=== PATIENT | male | born 1980 | race Caucasian/White ===

== ENCOUNTER 2024-09-04 17:55 | Emergency (ER) | payer BC, SELFPAY ==
[2024-09-04 17:55] VITALS: BP 153/106; PULSE 112; RESP 16; TEMP 36.3; O2SAT 98; BMI 21.6
--- NOTE | 2024-09-04 19:00 | RAD_ITS ---
PROCEDURE: FINGER(S) MIN 2 VIEWS 09/04/2024 REASON FOR EXAM: TRAUMA TECHNIQUE: FINGER(S) MIN 2 VIEWS COMPARISON: None. FINDINGS: Bones: Acute mildly displaced and comminuted fracture of the 2nd middle phalanx (pointer finger). Joints: There is intra-articular extension of the fracture into the PIP joint. Otherwise unremarkable joint spaces. Soft tissues: Soft tissue swelling. Other: No radiopaque foreign body. RAD/Finger(s) Min 2 Views IMPRESSION: Acute fracture of the 2nd middle phalanx with intra-articular extension. Reading Location: [id number]
--- OUTSIDE RECORDS SUMMARY | 2024-09-04 19:04 | XMS RPT_ITS | CCD ---
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 episode (HCC) - ICD9: 296.22, ICD10: F32.1 (primary diagnosis) - BUPROPION XL 150 MG TAB 2. Screening for depression - ICD9: V79.0, ICD10: Z13.31 - DEPRESSION SCREENING 3. Encounter for screening examination for other mental health and behavioral disorders - ICD9: V79.8, ICD10: Z13.39 - ANXIETY SCREENING 4. Bacterial sinusitis - ICD9: 473.9, 041.9, ICD10: J32.9, B96.89 - Will begin treatment with as per antibiotic as written, see orders - AMOXICILLIN 875 MG-POTASSIUM CLAVULANATE 125 MG TABLET Lashawn Rod APRN.Lashawn Leigh APRN.CNP 01/20/2024 4:26 PM Signed [place] [facility] - Insurance Therapy/Counseling [facility] [address] [place] [address] [address] [employer] [address] [address] [facility] [address] [place] [address] [facility] [address] [place] [address] [facility] [address] [place], [place] [address] [employer] [address] [place] [address] [facility] [address] [place] [address] Allergies As of Date: 01/20/2024 (No Known Allergies) Date Reviewed: 01/20/2024 Reviewed by: Elda Eugene MA - Fully Assessed Reason for Visit: Depression [32] Primary Visit Diagnosis:Current moderate episode of major depressive disorder without prior episode (HCC) [F32.1] Other Visit Diagnoses:Screening for depression [Z13.31] Encounter for screening examination for other mental health and behavioral disorders [Z13.39] Bacterial sinusitis [J32.9, B96.89] Order(s):buPROPion XL (WELLBUTRIN XL) 150 mg 24 hr tabletTake 1 tablet by mouth once daily.Disp: 60 tabletRfl: 0 DEPRESSION SCREENING [] Order #: [id number] (more content not included)... Normal [facility] Vital Signs Date Time Vital Sign Value Performing Clinician Shabbir ferraro 07-19-2024 15:39-0400 Body mass index (BMI) [Ratio] 22.98 kg/m2 Lashawn Rod APRN.EVENTS SOLUTIONS CONSULTANT Work Phone: [facility] 07-19-2024 15:39-0400 Body weight 79 kg Lashawn Rod APRN.EVENTS SOLUTIONS CONSULTANT Work Phone: [facility] 07-19-2024 15:39-0400 Diastolic blood pressure 73 mm[Hg] Lashawn Rod APRN.EVENTS SOLUTIONS CONSULTANT Work Phone: [facility] 07-19-2024 15:39-0400 Heart rate 83 /min Lashawn Rod APRN.EVENTS SOLUTIONS CONSULTANT Work Phone: [facility] 07-19-2024 15:39-0400 Systolic blood pressure 114 mm[Hg] Lashawn Rod APRN.EVENTS SOLUTIONS CONSULTANT Work Phone: [facility] 04-20-2024 16:04-0500 Body mass index (BMI) [Ratio] 23.48 kg/m2 Lashawn Rod APRN.EVENTS SOLUTIONS CONSULTANT Work Phone: [facility] 04-20-2024 16:04-0500 Body weight 80.74 kg Lashawn Rod APRN.EVENTS SOLUTIONS CONSULTANT Work Phone: [facility] 04-20-2024 16:04-0500 Diastolic blood pressure 73 mm[Hg] Lashawn Rod APRN.EVENTS SOLUTIONS CONSULTANT Work Phone: [facility] 04-20-2024 16:04-0500 Heart rate 77 /min Lashawn Efrainoble CLERK FUNERAL DETAIL.EVENTS SOLUTIONS CONSULTANT Work Phone: [facility] 04-20-2024 16:04-0500 Respiratory rate 14 /min Lashawn Efrainoble CLERK FUNERAL DETAIL.EVENTS SOLUTIONS CONSULTANT Work Phone: [facility] 04-20-2024 16:04-0500 Systolic blood pressure 117 mm[Hg] Lashawn Efrainoble CLERK FUNERAL DETAIL.EVENTS SOLUTIONS CONSULTANT Work Phone: [facility] 03-02-2024 15:58-0500 Body mass index (BMI) [Ratio] 23.62 kg/m2 Lashawn Efrainoble CLERK FUNERAL DETAIL.EVENTS SOLUTIONS CONSULTANT Work Phone: [facility] 03-02-2024 15:58-0500 Body weight 81.19 kg Lashawn Knoble CLERK FUNERAL DETAIL.EVENTS SOLUTIONS CONSULTANT Work Phone: [facility] 03-02-2024 15:58-0500 Diastolic blood pressure 71 mm[Hg] Lashawn Efrainoble CLERK FUNERAL DETAIL.EVENTS SOLUTIONS CONSULTANT Work Phone: [facility] 03-02-2024 15:58-0500 Heart rate 73 /min Lashawn Efrainoble CLERK FUNERAL DETAIL.EVENTS SOLUTIONS CONSULTANT Work Phone: [facility] 03-02-2024 15:58-0500 Respiratory rate 14 /min Lashawn Efrainoble CLERK FUNERAL DETAIL.EVENTS SOLUTIONS CONSULTANT Work Phone: [facility] 03-02-2024 15:58-0500 Systolic blood pressure 117 mm[Hg] Lashawn Viola CLERK FUNERAL DETAIL.EVENTS SOLUTIONS CONSULTANT Work Phone: [facility] 01-20-2024 16:10-0500 Body mass index (BMI) [Ratio] 23.62 kg/m2 Lashawn Knoble CLERK FUNERAL DETAIL.EVENTS SOLUTIONS CONSULTANT Work Phone: [facility] 01-20-2024 16:10-0500 Body weight 81.19 kg Lashawn Efrainoble CLERK FUNERAL DETAIL.EVENTS SOLUTIONS CONSULTANT Work Phone: [facility] 01-20-2024 16:10-0500 Diastolic blood pressure 71 mm[Hg] Lashawn Efrainoble CLERK FUNERAL DETAIL.EVENTS SOLUTIONS CONSULTANT Work Phone: [facility] 01-20-2024 16:10-0500 Heart rate 83 /min Lashawn Viola CLERK FUNERAL DETAIL.EVENTS SOLUTIONS CONSULTANT Work Phone: [facility] 01-20-2024 16:10-0500 Respiratory rate 14 /min Lashawn Rod CLERK FUNERAL DETAIL.EVENTS SOLUTIONS CONSULTANT Work Phone: [facility] 01-20-2024 16:10-0500 Systolic blood pressure 115 mm[Hg] Lashawn Rod CLERK FUNERAL DETAIL.EVENTS SOLUTIONS CONSULTANT Work Phone: [facility] 02-22-2023 12:04-0500 Body temperature 97.5 [degF] Alicia Rene CLERK FUNERAL DETAIL.EVENTS SOLUTIONS CONSULTANT Work Phone: [facility] 02-22-2023 12:04-0500 Body weight 82.01 kg Alicia Rene CLERK FUNERAL DETAIL.EVENTS SOLUTIONS CONSULTANT Work Phone: [facility] 02-22-2023 12:04-0500 Diastolic blood pressure 86 mm[Hg] Alicia Rene CLERK FUNERAL DETAIL.EVENTS SOLUTIONS CONSULTANT Work Phone: [facility] 02-22-2023 12:04-0500 Heart rate 89 /min Alicia Rene CLERK FUNERAL DETAIL.EVENTS SOLUTIONS CONSULTANT Work Phone: [facility] 02-22-2023 12:04-0500 Respiratory rate 16 /min Alicia Rene CLERK FUNERAL DETAIL.EVENTS SOLUTIONS CONSULTANT Work Phone: [facility] 02-22-2023 12:04-0500 SaO2% (BldA) [Mass fraction] 96 % Alicia Rene CLERK FUNERAL DETAIL.EVENTS SOLUTIONS CONSULTANT Work Phone: [facility] 02-22-2023 12:04-0500 Systolic blood pressure 124 mm[Hg] Alicia Rene CLERK FUNERAL DETAIL.EVENTS SOLUTIONS CONSULTANT Work Phone: [facility] 10-03-2022 18:03-0400 Body height 185.4 cm Lasahwn Rod CLERK FUNERAL DETAIL.EVENTS SOLUTIONS CONSULTANT Work Phone: [facility] 10-03-2022 18:03-0400 Body weight 78.02 kg Lashawn Rod CLERK FUNERAL DETAIL.EVENTS SOLUTIONS CONSULTANT Work Phone: [facility] 10-03-2022 18:03-0400 Diastolic blood pressure 76 mm[Hg] Lashawn Rod APRN.EVENTS SOLUTIONS CONSULTANT Work Phone: [facility] 10-03-2022 18:03-0400 Heart rate 80 /min Lashawn Rod APRN.EVENTS SOLUTIONS CONSULTANT Work Phone: [facility] 10-03-2022 18:03-0400 Respiratory rate 16 /min Lashawn Rod APRN.EVENTS SOLUTIONS CONSULTANT Work Phone: [facility] 10-03-2022 18:03-0400 Systolic blood pressure 124 mm[Hg] Lashawn Rod APRN.EVENTS SOLUTIONS CONSULTANT Work Phone: [facility] 08-16-2022 18:50-0400 Body temperature 98.4 [degF] Cooper Rivera MD Work Phone: [facility] 08-16-2022 18:50-0400 Body weight 80.83 kg Cooper Rivera MD Work Phone: [facility] 08-16-2022 18:50-0400 Diastolic blood pressure 78 mm[Hg] Cooper Rivera MD Work Phone: [facility] 08-16-2022 18:50-0400 Heart rate 89 /min Cooper Rivera MD Work Phone: [facility] 08-16-2022 18:50-0400 Respiratory rate 18 /min Cooper Rivera MD Work Phone: [facility] 08-16-2022 18:50-0400 SaO2% (BldA) [Mass fraction] 97 % Cooper Rivera MD Work Phone: [facility] 08-16-2022 18:50-0400 Systolic blood pressure 122 mm[Hg] Cooper Rivera MD Work Phone: [facility] Encounters Encounter Date Encounter Type Care Provider Facility Start: 07-19-2024 End: 07-19-2024 Patient encounter procedure Lashawn Rod APRN.EVENTS SOLUTIONS CONSULTANT Work Phone: [facility] Comment on above: Bacterial sinusitis (Primary Dx); Eczema, unspecified type Start: 07-19-2024 End: 07-19-2024 ambulatory LASHAWN ROD Facility:[facility] Start: 04-20-2024 End: 04-20-2024 ambulatory LASHAWN ROD Facility:[facility] Start: 04-20-2024 End: 04-20-2024 Patient encounter procedure Lashawn Rod APRN.EVENTS SOLUTIONS CONSULTANT Work Phone: [facility] [place] Comment on above: Current moderate epi sode of major depressive disorder without prior episode (HCC) (Primary Dx); Screening for diabetes mellitus; Screening for lipid disorders; Medication management Start: 03-02-2024 End: 03-02-2024 Patient encounter procedure Lashawn Rod APRN.EVENTS SOLUTIONS CONSULTANT Work Phone: [facility] [place] Comment on above: Current moderate epi sode of major depressive disorder without prior episode (HCC) (Primary Dx); Difficulty sleeping Start: 03-02-2024 End: 03-02-2024 ambulatory LASHAWN ROD Facility:[facility] Start: 01-20-2024 End: 01-20-2024 ambulatory LASHAWN ROD Facility:[facility] Start: 01-20-2024 End: 01-20-2024 Patient encounter procedure Lashawn Rod APRN.EVENTS SOLUTIONS CONSULTANT Work Phone: [facility] Comment on above: Current moderate epi sode of major depressive disorder without prior episode (HCC) (Primary Dx); Screening for depression; Encounter for screening examination for other mental health and behavioral disorders; Bacterial sinusitis Start: 02-22-2023 End: 02-22-2023 Patient encounter procedure Alicia Rene APRN.EVENTS SOLUTIONS CONSULTANT [facility] Comment on above: Rhinosinusitis (Prim finn Dx) Start: 11-11-2022 Telephone encounter Arielle tyler PA-C Work Phone: [facility] [place] Comment on above: Results Start: 10-03-2022 End: 10-03-2022 Patient encounter procedure Lashawn Rod APRN.EVENTS SOLUTIONS CONSULTANT Work Phone: [facility] [place] Comment on above: Screening for diabet es mellitus (Primary Dx); Screening for lipid disorders; Medication management; Encounter for immunization; Special screening examination for viral disease; Screening for HIV (human immunodeficiency virus) Start: 08-16-2022 End: 08-16-2022 Patient encounter procedure Cooper Rivera MD Work Phone: [facility] Comment on above: Subacute cough (Prim finn Dx) Start: 12-06-2013 End: 12-06-2013 Emergency department patient visit Trevon Pink Facility:[facility] Procedures Date Procedure Procedure Detail Performing Clinician Start: 01-20-2024 Adult depression scr eening assessment Lashawn Rod CLERK FUNERAL DETAIL.EVENTS SOLUTIONS CONSULTANT Work Phone: Start: 11-09-2022 Lipid 1996 panel - S bacilio or Plasma Alicia Rene CLERK FUNERAL DETAIL.EVENTS SOLUTIONS CONSULTANT Work Phone: Start: 12-06-2013 Closure of skin and subcutaneous tissue of other sites Trevon Joesph Plan of Treatment Date Care Activity Detail Author Start: 10-03-2032 Urine microalbumin profile [facility] Start: 11-10-2027 Lipid 1996 panel - Serum or Plasma Lipid Screening [facility] Start: 11-10-2027 Lipid panel Lipid Screening [facility] Start: 11-10-2027 LIPID SCREEN LIPID SCREEN [facility] Start: 01-19-2025 Anxiety Screening Anxiety Screening [facility] Start: 01-19-2025 Depression Screening Depression Scre ening [facility] Start: 11-15-2024 Influenza vaccination Influenz a Vaccine (Season Ended) [facility] Start: 10-19-2024 End: 01-18-2025 CBC W Auto Differential panel - Blood COMPLETE BLOOD COUNT AND DIFFERENTIAL Lab Routine Medication management Expected: 10/19/2024, Expires: 01/18/[address] [facility] Work Phone: Comment on above: Expected: 10/19/2024 , Expires: 01/18/2025 Start: 10-19-2024 End: 01-18-2025 Comprehensive metabolic 2000 panel - Serum or Plasma COMPREHENSIVE METABOLIC PANEL Lab Routine Screening for diabetes mellitus Expected: 10/19/2024, Expires: 01/18/2025 [facility] Comment on above: Expected: 10/19/2024 , Expires: 01/18/2025 Start: 10-19-2024 End: 01-18-2025 Hemoglobin A1c in Blood HEMOGLOBIN A1C Lab Routine Screening for diabetes mellitus Expected: 10/19/2024, Expires: 01/18/2025 [facility] Comment on above: Expected: 10/19/2024 , Expires: 01/18/2025 Start: 10-19-2024 End: 01-18-2025 LIPID PANEL, NONFASTING LIPID PANEL, NONFASTING Lab Routine Screening for lipid disorders Expected: 10/19/2024, Expires: 01/18/2025 [facility] Comment on above: Expected: 10/19/2024 , Expires: 01/18/2025 Start: 10-19-2024 End: 01-18-2025 Thyrotropin [Units/volume] in Serum or Plasma THYROID STIMULATING HORMONE Lab Routine Medication management Expected: 10/19/2024, Expires: 01/18/2025 [facility] Comment on above: Expected: 10/19/2024 , Expires: 01/18/2025 Start: 10-18-2024 End: 10-18-2024 Patient encounter procedure 10/18/2024 4:00 PM EDT Office Visit Family [address] [address] Lashawn Rod, WILIAN.EVENTS SOLUTIONS CONSULTANT [address] [place] [address] [phone] 6 month follow up Family Sarah Harding Comment on above: 6 month follow up Start: 04-01-2024 End: 04-01-2024 Patient encounter procedure 04/01/2024 4:00 PM EST Office Visit Family [facility] [address] [place] [address] Lashawn Rod, CLERK FUNERAL DETAIL.EVENTS SOLUTIONS CONSULTANT [address] [place] [address] [phone] 4 week follow up Family Sarah Harding Comment on above: 4 week follow up Start: 03-02-2024 End: 03-02-2024 Patient encounter procedure 03/02/2024 4:20 PM EST Office Visit Family [address] [id number] Lashawn Rod APRN.EVENTS SOLUTIONS CONSULTANT [address] [place] [address] medication follow up Family [facility] Comment on above: medication follow up Start: 11-16-2023 Covid-19 Vaccine ( season) Covid-19 Vaccine ( season) [facility] Start: 11-16-2023 Influenza vaccination Influenza Vacc ine (#1) [facility] Start: 10-04-2023 COVID-19 VACCINE (#1) COVID-19 VACCI NE (#1) [facility] Comment on above: Postponed from 12/24 (Declined at this time) Start: 11-15-2022 Influenza vaccination C [facility] Start: 10-03-2022 End: 12-03-2022 CBC W Auto Differential panel - Blood CBC + DIFF Lab Routine Medication management Expected: 10/03/2022, Expires: 12/03/[address] [facility] Work Phone: Comment on above: Expected: 10/03/2022 , Expires: 12/03/2022 Start: 10-03-2022 End: 12-03-2022 Comprehensive metabolic 2000 panel - Serum or Plasma COMP METABOLIC PANEL Lab Routine Medication management Expected: 10/03/2022, Expires: 12/03/[address] [facility] Work Phone: Comment on above: Expected: 10/03/2022 , Expires: 12/03/2022 Start: 10-03-2022 End: 12-03-2022 Hemoglobin A1c in Blood HGB A1C Lab Routine Screening for diabetes mellitus Expected: 10/03/2022, Expires: 12/03/[address] [facility] Work Phone: Comment on above: Expected: 10/03/2022 , Expires: 12/03/2022 Start: 10-03-2022 End: 12-03-2022 Hepatitis C virus Ab [Presence] in Serum HEPATITIS C ANTIBODY IA WITH CONFIRMATION Lab Routine Special screening examination for viral disease Expected: 10/03/2022, Expires: 12/03/[address] [facility] Work Phone: Comment on above: Expected: 10/03/2022 , Expires: 12/03/2022 Start: 10-03-2022 End: 12-03-2022 HIV 1+2 Ab [Presence] in Serum or Plasma by Immunoassay HIV 1 2 COMBO(AG/AB),WITH REFLEX TO DIFFERENTIATION Lab Routine Screening for HIV (human immunodeficiency virus) Expected: 10/03/2022, Expires: 12/03/[address] [facility] Work Phone: Comment on above: Expected: 10/03/2022 , Expires: 12/03/2022 Start: 10-03-2022 End: 12-03-2022 LIPID PANEL, NONFASTING LIPID PANEL, NONFASTING Lab Routine Screening for lipid disorders Expected: 10/03/2022, Expires: 12/03/[address] [facility] Work Phone: Comment on above: Expected: 10/03/2022 , Expires: 12/03/2022 Start: 03-17-2022 DEPRESSION ASSESSMENT DEPRESSION ASS ESSMENT [facility] Start: 06-25-2015 LIPID SCREEN LIPID SCREEN [facility] Start: 06-25-1999 Urine microalbumin profile DTAP,TDAP,TD (1 - Tdap) [facility] Start: 1998 HEPATITIS C SCREENING HEPATITIS C [facility] Start: 1998 HIV SCREENING HIV SCREENING [facility] Start: 1980 COVID-19 VACCINE (#1) COVID-19 VACCI NE (#1) [facility] Start: 1980 HEPATITIS B (1 of 3 - 3-dose series) HEPATITIS B (1 of 3 - 3-dose series) [facility] Immunizations Immunization Date Immunization Notes Care Provider Fa dipak 10-03-2022 tetanus toxoid, redu carla diphtheria toxoid, and acellular pertussis vaccine, adsorbed Lashawn Rod APRN.CNP Work Phone: [facility] Payers Date Payer Category Payer Blue Cross Blue [facility] Subscriber Plan / Payer (Effective 2015-Present) Name: Albert Samuels Relation to Subscriber: Self Name: Albert Samuels Payer ID: [id number] ([facility]) Type: PPO Address: [address] [place] [id number] 2015 Unknown RONAK MCGOWAN PPO [id number] 2015-Present [phone] [address] [place] [id number] PPO [id number] 2015 Unknown [id number] Unknown [id number] Social History Date Type Detail Facility Start: 03-12-2014 Tobacco smoking stat [facility] Never smoked tobacco [facility] Start: 03-12-2014 Tobacco use and exposure Smokeless tobacco non-user [facility] Start: 08-16-2022 [facility] intake [facility] Start: 1980 Sex Assigned At Not on file C [facility] Start: 10-03-2022 End: 02-22-2023 Alcohol intake Current drinker of alcohol (finding) [facility] Start: 10-03-2022 End: 04-20-2024 Alcohol intake [facility] Work Phone: Start: 10-03-2022 End: 04-20-2024 Tobacco use panel [facility] Work Phone: Adult Depression Screening Assessment 2 [facility] Work Phone: Functional Status Date Assessment Result Facility 03-12-2014 Are you deaf, or do you have serious difficulty hearing No 03/12/2014 11:24 AM EST Mylene Burleson LPN No [facility] 03-12-2014 Are you blind, or do you have serious difficulty seeing, even when wearing glasses No 03/12/2014 11:24 AM Mylene Morrissey LPN No [facility] 03-12-2014 Do you have serious difficulty walking or climbing stairs No 03/12/2014 11:24 AM Mylene Morrissey LPN No [facility] 03-12-2014 Do you have difficul ty dressing or bathing No 03/12/2014 11:24 AM Mylene Morrissey LPN No [facility] 03-12-2014 Because of a physica l, mental, or emotional condition, do you have difficulty doing errands alone such as visiting a physician's office or shopping No 03/12/2014 11:24 AM Mylene Morrissey LPN No [facility] Mental Status Date Assessment Result Facility 03-12-2014 Because of a physica l, mental, or emotional condition, do you have serious difficulty concentrating, remembering, or making decisions No 03/12/2014 11:24 AM yMlene Morrissey LPN No [facility] Clinical Notes 08-16-2022 to 07-19-2024 Patient InstructionsLashawn Rod APRN.SYLVAIN - 07/19/2024 3:39 PM EDTLashawn Rod APRN.SYLVAIN - 04/20/2024 4:06 PM ESTLashawn Rod APRN.SYLVAIN - 03/02/2024 4:00 PM ESTPatient Instructions Note Date & Type Note Facility 07-19-2024 Instructions Lashawn Rod APRN.SYLVAIN - 07/19/2024 3:48 PM EDT - Take Augmentin twice daily for 5 days as prescribed to treat your sinus infection. - Monitor your symptoms; if your sinus congestion or cough does not improve after the antibiotic course, please call our office for further evaluation. -Use aquaphor/eucerin/aveeno to hands daily. documented in this encounter [facility] 07-19-2024 Note HNO ID: [id number] Author: LASHAWN ROD APRN.CNP Service: ? Author Type: Nurse Practitioner Type: Progress Notes Filed: 07/19/2024 15:49 Note Text: Chief Complaint Patient presents with: Sinus Problem Cough TED Samuels is a 44 year old male who presents here today for Above Complaints. Sinus Infection: - Onset 7 days ago. - Initial symptoms: rhinorrhea and nasal congestion. - Progressed to cough and throat discomfort; productive cough with nasty stuff for the past few days. - Recent difficulty sleeping due to congestion and cough. - Using Sudafed, Nasacort, and a neti pot with temporary relief. - Denies fever, chills, dyspnea, or chest pain. Skin Condition: - Peeling skin on hands, resembling amezcua or glue residue. - Symptoms have somewhat resolved, not as severe as before. Past medical history, appointments, medications, allergies reviewed. Previous Medical History PAST MEDICAL HISTORY Diagnosis Date Low testosterone in male NEGATIVE MEDICAL HISTORY Seasonal allergies Previous Surgical History PAST SURGICAL HISTORY Procedure Laterality Date PAST SURGICAL HISTORY OF ORIF proximal tibia Family History FAMILY HISTORY Problem Relation Age of Onset Ovarian cancer Mother Patient Allergies ALLERGIES No Known Allergies Current Medications Current Outpatient Medications on File Prior to Visit Medication Sig buPROPion XL (WELLBUTRIN XL) 300 mg 24 hr tablet Take 1 tablet by mouth once daily. magnesium glycinate 100 mg magnesium capsule Take 2 capsules by mouth daily at bedtime. loratadine (CLARITIN ORAL) Take by mouth. No current facility-administered medications on file prior to visit. Social History Social History Tobacco Use Smoking status: Never Smokeless tobacco: Never Substance Use Topics Alcohol use: Yes Alcohol/week: 5.0 standard drinks of alcohol Types: 5 Standard drinks or equivalent per week Drug use: Yes Types: Marijuana Comment: occasional Review of Symptoms REVIEW OF SYSTEMS SEE HPI EXAM: BP 114/73 Pulse 83 Wt 79 kg (174 lb 2.6 oz) BMI 22.98 kg/m? GENERAL: NAD, alert and oriented SKIN: Unremarkable, no rash or skin lesions. HEAD: Normocephalic EARS: External ears normal, canals clear, TM's normal. NOSE/SINUSES: Nares erythematous and swollen. Septum midline. OROPHARYNX: Lips, mucosa, and tongue normal, good dentition. No oral lesions noted. No pharyngeal erythema. NECK: Supple, no lymphadenopathy, normal thyroid, no carotid bruits. LUNGS: Clear to auscultation bilaterally, no wheezes/rhonchi/rales. HEART: Regular rate and rhythm, no murmurs. No ectopy. Health Maintenance List Covid-19 Vaccine( season) Never done Influenza Vaccine(Season Ended) due on 11/15/2024 Depression Screening due on 01/19/2025 Anxiety Screening due on 01/19/2025 Lipid Screening due on 11/10/2027 DTaP,Tdap,Td Vaccine(2 - Td or Tdap) due on 10/03/2032 Hepatitis C Screening Completed HIV Screening Completed Hepatitis B Vaccine Discontinued ASSESSMENT/PLAN: 1. Bacterial sinusitis - ICD9: 473.9, 041.9, ICD10: J32.9, B96.89 (primary diagnosis) - Will begin treatment with as per antibiotic as written, see orders - The patient should also be given nasal saline gtts and suction prn for the first 5-7 days of treatment. - Supportive care with plenty of fluids, rest, and analgesia prn. - Follow up in 3-5 days if symptoms persist or worsen. - AMOXICILLIN 875 MG-POTASSIUM CLAVULANATE 125 MG TABLET 2. Eczema, unspecified type - ICD9: 692.9, ICD10: L30.9 - discussed skin care of rash - follow up if symptoms persist or worsen. - Use aquaphor/eucerin/aveeno to hands daily. Lashawn Rod APRN.[facility] 07-19-2024 History of Presen t illness Narrative Chief Complaint Patient presents with: Sinus Problem Cough HPI Albert Samuels is a 44 year old male who presents here today for Above Complaints. Sinus Infection: - Onset 7 days ago. - Initial symptoms: rhinorrhea and nasal congestion. - Progressed to cough and throat discomfort; productive cough with nasty stuff for the past few days. - Recent difficulty sleeping due to congestion and cough. - Using Sudafed, Nasacort, and a neti pot with temporary relief. - Denies fever, chills, dyspnea, or chest pain. Skin Condition: - Peeling skin on hands, resembling amezcua or glue residue. - Symptoms have somewhat resolved, not as severe as before. Past medical history, appointments, medications, allergies reviewed. Previous Medical History PAST MEDICAL HISTORY Diagnosis Date Low testosterone in male NEGATIVE MEDICAL HISTORY Seasonal allergies Previous Surgical History PAST SURGICAL HISTORY Procedure Laterality Date PAST SURGICAL HISTORY OF ORIF proximal tibia Family History FAMILY HISTORY Problem Relation Age of Onset Ovarian cancer Mother Patient Allergies ALLERGIES No Known Allergies Current Medications Current Outpatient Medications on File Prior to Visit Medication Sig buPROPion XL (WELLBUTRIN XL) 300 mg 24 hr tablet Take 1 tablet by mouth once daily. magnesium glycinate 100 mg magnesium capsule Take 2 capsules by mouth daily at bedtime. loratadine (CLARITIN ORAL) Take by mouth. No current facility-administered medications on file prior to visit. Social History Social History Tobacco Use Smoking status: Never Smokeless tobacco: Never Substance Use Topics Alcohol use: Yes Alcohol/week: 5.0 standard drinks of alcohol Types: 5 Standard drinks or equivalent per week Drug use: Yes Types: Marijuana Comment: occasional Review of Symptoms REVIEW OF SYSTEMS SEE HPI EXAM: BP 114/73 Pulse 83 Wt 79 kg (174 lb 2.6 oz) BMI 22.98 kg/m GENERAL: NAD, alert and oriented SKIN: Unremarkable, no rash or skin lesions. HEAD: Normocephalic EARS: External ears normal, canals clear, TM's normal. NOSE/SINUSES: Nares erythematous and swollen. Septum midline. OROPHARYNX: Lips, mucosa, and tongue normal, good dentition. No oral lesions noted. No pharyngeal erythema. NECK: Supple, no lymphadenopathy, normal thyroid, no carotid bruits. LUNGS: Clear to auscultation bilaterally, no wheezes/rhonchi/rales. HEART: Regular rate and rhythm, no murmurs. No ectopy. Health Maintenance List Covid-19 Vaccine( season) Never done Influenza Vaccine(Season Ended) due on 11/15/2024 Depression Screening due on 01/19/2025 Anxiety Screening due on 01/19/2025 Lipid Screening due on 11/10/2027 DTaP,Tdap,Td Vaccine(2 - Td or Tdap) due on 10/03/2032 Hepatitis C Screening Completed HIV Screening Completed Hepatitis B Vaccine Discontinued ASSESSMENT/PLAN: 1. Bacterial sinusitis - ICD9: 473.9, 041.9, ICD10: J32.9, B96.89 (primary diagnosis) - Will begin treatment with as per antibiotic as written, see orders - The patient should also be given nasal saline gtts and suction prn for the first 5-7 days of treatment. - Supportive care with plenty of fluids, rest, and analgesia prn. - Follow up in 3-5 days if symptoms persist or worsen. - AMOXICILLIN 875 MG-POTASSIUM CLAVULANATE 125 MG TABLET 2. Eczema, unspecified type - ICD9: 692.9, ICD10: L30.9 - discussed skin care of rash - follow up if symptoms persist or worsen. - Use aquaphor/eucerin/aveeno to hands daily. Lashawn Rod APRN.[employer] documented in this encounter [facility] 04-20-2024 Note HNO ID: [id number] Author: LASHAWN ROD APRN.SYLVAIN Service: ? Author Type: Nurse Practitioner Type: Progress Notes Filed: 04/20/2024 16:17 Note Text: Chief Complaint Patient presents with: Follow Up HPI Albert Samuels is a 43 year old male who presents here today for Above Complaints.. Patient presents for medication follow up. Patient was seen 03/02 and his wellbutrin was increased 03/02. Patient reports he is doing well on current dose. Past medical history, appointments, medications, allergies reviewed. Previous Medical History PAST MEDICAL HISTORY Diagnosis Date Low testosterone in male NEGATIVE MEDICAL HISTORY Seasonal allergies Previous Surgical History PAST SURGICAL HISTORY Procedure Laterality Date PAST SURGICAL HISTORY OF ORIF proximal tibia Family History FAMILY HISTORY Problem Relation Age of Onset Ovarian cancer Mother Patient Allergies ALLERGIES No Known Allergies Current Medications Current Outpatient Medications on File Prior to Visit Medication Sig buPROPion XL (WELLBUTRIN XL) 300 mg 24 hr tablet Take 1 tablet by mouth once daily. magnesium glycinate 100 mg magnesium capsule Take 2 capsules by mouth daily at bedtime. loratadine (CLARITIN ORAL) Take by mouth. No current facility-administered medications on file prior to visit. Social History Social History Tobacco Use Smoking status: Never Smokeless tobacco: Never Substance Use Topics Alcohol use: Yes Alcohol/week: 5.0 standard drinks of alcohol Types: 5 Standard drinks or equivalent per week Drug use: Yes Types: Marijuana Comment: occasional Review of Symptoms REVIEW OF SYSTEMS SEE HPI EXAM: BP 117/73 Pulse 77 Resp 14 Wt 80.7 kg (178 lb) BMI 23.48 kg/m? General Appearance: Well appearing, alert, in no acute distress, well-hydrated, well nourished. Health Maintenance List Influenza Vaccine(1) Never done Covid-19 Vaccine( - season) Never done Depression Screening due on 01/19/2025 Anxiety Screening due on 01/19/2025 Lipid Screening due on 11/10/2027 DTaP,Tdap,Td Vaccine(2 - Td or Tdap) due on 10/03/2032 Hepatitis C Screening Completed HIV Screening Completed HPV Vaccine Aged Out Hepatitis B Vaccine Discontinued PHQ-9 10/03/2022 01/20/2024 03/02/2024 04/20/2024 PHQ-9 Scores Little interest or pleasure in doing things: Several days Nearly every day More than half the days Not at all Feeling down, depressed, or hopeless: Several days Nearly every day Several days Not at all Trouble falling or staying asleep, or sleeping too much - Several days More than half the days More than half the days Feeling tired or having little energy - Nearly every day Several days Not at all Poor appetite or overeating - Not at all Not at all Not at all Feeling bad about yourself - or that you are a failure or have let yourself or your family down - Several days Not at all Not at all Trouble concentrating on things, such as reading the newspaper or watching television - Nearly every day More than half the days More than half the days Moving or speaking so slowly that other people could have noticed. Or the opposite - being so fidgety or restless that you have been moving around a lot more than usual - Not at all Not at all Not at all Thoughts that you would be better off , or of hurting yourself in some way - Not at all Not at all Not at all PHQ-9 Score - 14 8 4 Details ASSESSMENT/PLAN: 1. Current moderate episode of major depressive disorder without prior episode (HCC) - ICD9: 296.22, ICD10: F32.1 - BUPROPION XL 300 MG 24 HR TAB Lashawn Rod APRN.[facility] 04-20-2024 History of Presen t illness Narrative Chief Complaint Patient presents with: Follow Up HPI Albert Samuels is a 43 year old male who presents here today for Above Complaints.. Patient presents for medication follow up. Patient was seen 03/02 and his wellbutrin was increased 03/02. Patient reports he is doing well on current dose. Past medical history, appointments, medications, allergies reviewed. Previous Medical History PAST MEDICAL HISTORY Diagnosis Date Low testosterone in male NEGATIVE MEDICAL HISTORY Seasonal allergies Previous Surgical History PAST SURGICAL HISTORY Procedure Laterality Date PAST SURGICAL HISTORY OF ORIF proximal tibia Family History FAMILY HISTORY Problem Relation Age of Onset Ovarian cancer Mother Patient Allergies ALLERGIES No Known Allergies Current Medications Current Outpatient Medications on File Prior to Visit Medication Sig buPROPion XL (WELLBUTRIN XL) 300 mg 24 hr tablet Take 1 tablet by mouth once daily. magnesium glycinate 100 mg magnesium capsule Take 2 capsules by mouth daily at bedtime. loratadine (CLARITIN ORAL) Take by mouth. No current facility-administered medications on file prior to visit. Social History Social History Tobacco Use Smoking status: Never Smokeless tobacco: Never Substance Use Topics Alcohol use: Yes Alcohol/week: 5.0 standard drinks of alcohol Types: 5 Standard drinks or equivalent per week Drug use: Yes Types: Marijuana Comment: occasional Review of Symptoms REVIEW OF SYSTEMS SEE HPI EXAM: BP 117/73 Pulse 77 Resp 14 Wt 80.7 kg (178 lb) BMI 23.48 kg/m General Appearance: Well appearing, alert, in no acute distress, well-hydrated, well nourished. Health Maintenance List Influenza Vaccine(1) Never done Covid-19 Vaccine() Never done Depression Screening due on 01/19/2025 Anxiety Screening due on 01/19/2025 Lipid Screening due on 11/10/2027 DTaP,Tdap,Td Vaccine(2 - Td or Tdap) due on 10/03/2032 Hepatitis C Screening Completed HIV Screening Completed HPV Vaccine Aged Out Hepatitis B Vaccine Discontinued PHQ-9 10/03/2022 01/20/2024 03/02/2024 04/20/2024 PHQ-9 Scores Little interest or pleasure in doing things: Several days Nearly every day More than half the days Not at all Feeling down, depressed, or hopeless: Several days Nearly every day Several days Not at all Trouble falling or staying asleep, or sleeping too much - Several days More than half the days More than half the days Feeling tired or having little energy - Nearly every day Several days Not at all Poor appetite or overeating - Not at all Not at all Not at all Feeling bad about yourself - or that you are a failure or have let yourself or your family down - Several days Not at all Not at all Trouble concentrating on things, such as reading the newspaper or watching television - Nearly every day More than half the days More than half the days Moving or speaking so slowly that other people could have noticed. Or the opposite - being so fidgety or restless that you have been moving around a lot more than usual - Not at all Not at all Not at all Thoughts that you would be better off , or of hurting yourself in some way - Not at all Not at all Not at all PHQ-9 Score - 14 8 4 Details ASSESSMENT/PLAN: 1. Current moderate episode of major depressive disorder without prior episode (HCC) - ICD9: 296.22, ICD10: F32.1 - BUPROPION XL 300 MG 24 HR TAB Lashawn Rod APRN.[employer] documented in this encounter [facility] 03-02-2024 Note HNO ID: [id number] Author: LASHAWN ROD APRN.[employer] Service: ? Author Type: Nurse Practitioner Type: Progress Notes Filed: 03/02/2024 16:09 Note Text: Chief Complaint Patient presents with: Follow Up HPI Albert Samuels is a 43 year old male who presents here today for Above Complaints.. Patient presents for medication follow up. Past medical history, appointments, medications, allergies reviewed. Previous Medical History PAST MEDICAL HISTORY Diagnosis Date Low testosterone in male NEGATIVE MEDICAL HISTORY Seasonal allergies Previous Surgical History PAST SURGICAL HISTORY Procedure Laterality Date PAST SURGICAL HISTORY OF ORIF proximal tibia Family History FAMILY HISTORY Problem Relation Age of Onset Ovarian cancer Mother Patient Allergies ALLERGIES No Known Allergies Current Medications Current Outpatient Medications on File Prior to Visit Medication Sig buPROPion XL (WELLBUTRIN XL) 150 mg 24 hr tablet Take 1 tablet by mouth once daily. loratadine (CLARITIN ORAL) Take by mouth. No current facility-administered medications on file prior to visit. Social History Social History Tobacco Use Smoking status: Never Smokeless tobacco: Never Substance Use Topics Alcohol use: Yes Alcohol/week: 5.0 standard drinks of alcohol Types: 5 Standard drinks or equivalent per week Drug use: Yes Types: Marijuana Comment: occasional Review of Symptoms REVIEW OF SYSTEMS SEE HPI EXAM: BP 117/71 Pulse 73 Resp 14 Wt 81.2 kg (179 lb) BMI 23.62 kg/m? General Appearance: Well appearing, alert, in no acute distress, well-hydrated, well nourished.. Health Maintenance List Influenza Vaccine(1) Never done Covid-19 Vaccine(1 - 2024-25 season) Never done Depression Screening due on 01/19/2025 Anxiety Screening due on 01/19/2025 Lipid Screening due on 11/10/2027 DTaP,Tdap,Td Vaccine(2 - Td or Tdap) due on 10/03/2032 Hepatitis C Screening Completed HIV Screening Completed HPV Vaccine Aged Out Hepatitis B Vaccine Discontinued Data reviewed PHQ-9 10/03/2022 01/20/2024 03/02/2024 PHQ-9 Scores Little interest or pleasure in doing things: Several days Nearly every day More than half the days Feeling down, depressed, or hopeless: Several days Nearly every day Several days Trouble falling or staying asleep, or sleeping too much - Several days More than half the days Feeling tired or having little energy - Nearly every day Several days Poor appetite or overeating - Not at all Not at all Feeling bad about yourself - or that you are a failure or have let yourself or your family down - Several days Not at all Trouble concentrating on things, such as reading the newspaper or watching television - Nearly every day More than half the days Moving or speaking so slowly that other people could have noticed. Or the opposite - being so fidgety or restless that you have been moving around a lot more than usual - Not at all Not at all Thoughts that you would be better off , or of hurting yourself in some way - Not at all Not at all PHQ-9 Score - 14 8 Details ASSESSMENT/PLAN: 1. Current moderate episode of major depressive disorder without prior episode (HCC) - ICD9: 296.22, ICD10: F32.1 (primary diagnosis) - BUPROPION XL 300 MG 24 HR TAB 2. Difficulty sleeping - ICD9: 780.50, ICD10: G47.9 - MAGNESIUM 100 MG ( GLYCINATE) CAPSULE Lashawn Rod APRN.[facility] 03-02-2024 History of Presen t illness Narrative Chief Complaint Patient presents with: Follow Up HPI Albert Samuels is a 43 year old male who presents here today for Above Complaints.. Patient presents for medication follow up. Past medical history, appointments, medications, allergies reviewed. Previous Medical History PAST MEDICAL HISTORY Diagnosis Date Low testosterone in male NEGATIVE MEDICAL HISTORY Seasonal allergies Previous Surgical History PAST SURGICAL HISTORY Procedure Laterality Date PAST SURGICAL HISTORY OF ORIF proximal tibia Family History FAMILY HISTORY Problem Relation Age of Onset Ovarian cancer Mother Patient Allergies ALLERGIES No Known Allergies Current Medications Current Outpatient Medications on File Prior to Visit Medication Sig buPROPion XL (WELLBUTRIN XL) 150 mg 24 hr tablet Take 1 tablet by mouth once daily. loratadine (CLARITIN ORAL) Take by mouth. No current facility-administered medications on file prior to visit. Social History Social History Tobacco Use Smoking status: Never Smokeless tobacco: Never Substance Use Topics Alcohol use: Yes Alcohol/week: 5.0 standard drinks of alcohol Types: 5 Standard drinks or equivalent per week Drug use: Yes Types: Marijuana Comment: occasional Review of Symptoms REVIEW OF SYSTEMS SEE HPI EXAM: BP 117/71 Pulse 73 Resp 14 Wt 81.2 kg (179 lb) BMI 23.62 kg/m General Appearance: Well appearing, alert, in no acute distress, well-hydrated, well nourished.. Health Maintenance List Influenza Vaccine(1) Never done Covid-19 Vaccine() Never done Depression Screening due on 01/19/2025 Anxiety Screening due on 01/19/2025 Lipid Screening due on 11/10/2027 DTaP,Tdap,Td Vaccine(2 - Td or Tdap) due on 10/03/2032 Hepatitis C Screening Completed HIV Screening Completed HPV Vaccine Aged Out Hepatitis B Vaccine Discontinued Data reviewed PHQ-9 10/03/2022 01/20/2024 03/02/2024 PHQ-9 Scores Little interest or pleasure in doing things: Several days Nearly every day More than half the days Feeling down, depressed, or hopeless: Several days Nearly every day Several days Trouble falling or staying asleep, or sleeping too much - Several days More than half the days Feeling tired or having little energy - Nearly every day Several days Poor appetite or overeating - Not at all Not at all Feeling bad about yourself - or that you are a failure or have let yourself or your family down - Several days Not at all Trouble concentrating on things, such as reading the newspaper or watching television - Nearly every day More than half the days Moving or speaking so slowly that other people could have noticed. Or the opposite - being so fidgety or restless that you have been moving around a lot more than usual - Not at all Not at all Thoughts that you would be better off , or of hurting yourself in some way - Not at all Not at all PHQ-9 Score - 14 8 Details ASSESSMENT/PLAN: 1. Current moderate episode of major depressive disorder without prior episode (HCC) - ICD9: 296.22, ICD10: F32.1 (primary diagnosis) - BUPROPION XL 300 MG 24 HR TAB 2. Difficulty sleeping - ICD9: 780.50, ICD10: G47.9 - MAGNESIUM 100 MG ( GLYCINATE) CAPSULE Lashawn Rod APRN.CNP documented in this encounter [facility] 01-20-2024 Instructions Lashawn Rod APRN.CNP - 01/20/2024 4:26 PM EST [place] [facility] - Insurance Therapy/Counseling [facility] [address] [place] [address] [facility] [address] [place] [address] [employer] [address] [place] [address] [facility] [address] [facility] [address] [place] [address] [facility] [address] [place] [address] Megan [facility] [address] [address] [facility] [address] [place] [address] [facility] [address] [place] [address] documented in this encounter [facility] 01-20-2024 Note HNO ID: [id number] Author: LASHAWN ROD APRN.CNP Service: ? Author Type: Nurse Practitioner Type: Progress Notes Filed: 01/20/2024 16:38 Note Text: Chief Complaint Patient presents with: Depression HPI Albert Samuels is a 43 year old male who presents here today for Above Complaints.. Patient presents for concern for depression. Patient reports over the last few years he has had decreased interest in hobbies, spending time with friends. Also reports lack of motivation with accomplishing tasks around his house. Started testosterone therapy thinking this would help but has seen no improvement in mental health. Past medical history, appointments, medications, allergies reviewed. Previous Medical History PAST MEDICAL HISTORY Diagnosis Date Low testosterone in male NEGATIVE MEDICAL HISTORY Seasonal allergies Previous Surgical History PAST SURGICAL HISTORY Procedure Laterality Date PAST SURGICAL HISTORY OF ORIF proximal tibia Family History FAMILY HISTORY Problem Relation Age of Onset Ovarian cancer Mother Patient Allergies ALLERGIES No Known Allergies Current Medications Current Outpatient Medications on File Prior to Visit Medication Sig loratadine (CLARITIN ORAL) Take by mouth. No current facility-administered medications on file prior to visit. Social History Social History Tobacco Use Smoking status: Never Smokeless tobacco: Never Substance Use Topics Alcohol use: Yes Alcohol/week: 5.0 standard drinks of alcohol Types: 5 Standard drinks or equivalent per week Drug use: Yes Types: Marijuana Comment: occasional Review of Symptoms REVIEW OF SYSTEMS SEE HPI EXAM: BP 115/71 Pulse 83 Resp 14 Wt 81.2 kg (179 lb) BMI 23.62 kg/m? General Appearance: Well appearing, alert, in no acute distress, well-hydrated, well nourished Nose/Sinuses: Positive findings: mucosa erythematous and swollen, purulent rhinorrhea Oropharynx: Lips, mucosa, and tongue normal, teeth and gums normal, oropharynx normal Neck: Supple, no adenopathy; thyroid symmetric, normal size, no bruits Lungs: Lungs clear to auscultation. No wheezing, rhonchi, rales.. Heart: RRR without murmur, gallop, or rubs. No ectopy. Health Maintenance List Depression Screening Never done Anxiety Screening Never done Influenza Vaccine(1) Never done Covid-19 Vaccine( - season) Never done Lipid Screening due on 11/10/2027 DTaP,Tdap,Td Vaccine(2 - Td or Tdap) due on 10/03/2032 Hepatitis C Screening Completed HIV Screening Completed HPV Vaccine Aged Out Hepatitis B Vaccine Discontinued ASSESSMENT/PLAN: 1. Current moderate episode of major depressive disorder without prior episode (HCC) - ICD9: 296.22, ICD10: F32.1 (primary diagnosis) - BUPROPION XL 150 MG TAB 2. Screening for depression - ICD9: V79.0, ICD10: Z13.31 - DEPRESSION SCREENING 3. Encounter for screening examination for other mental health and behavioral disorders - ICD9: V79.8, ICD10: Z13.39 - ANXIETY SCREENING 4. Bacterial sinusitis - ICD9: 473.9, 041.9, ICD10: J32.9, B96.89 - Will begin treatment with as per antibiotic as written, see orders - AMOXICILLIN 875 MG-POTASSIUM CLAVULANATE 125 MG TABLET Lashawn Rod, CLERK [employer].[facility] 01-20-2024 History of Presen t illness Narrative Chief Complaint Patient presents with: Depression HPI Albert Samuels is a 43 year old male who presents here today for Above Complaints.. Patient presents for concern for depression. Patient reports over the last few years he has had decreased interest in hobbies, spending time with friends. Also reports lack of motivation with accomplishing tasks around his house. Started testosterone therapy thinking this would help but has seen no improvement in mental health. Past medical history, appointments, medications, allergies reviewed. Previous Medical History PAST MEDICAL HISTORY Diagnosis Date Low testosterone in male NEGATIVE MEDICAL HISTORY Seasonal allergies Previous Surgical History PAST SURGICAL HISTORY Procedure Laterality Date PAST SURGICAL HISTORY OF ORIF proximal tibia Family History FAMILY HISTORY Problem Relation Age of Onset Ovarian cancer Mother Patient Allergies ALLERGIES No Known Allergies Current Medications Current Outpatient Medications on File Prior to Visit Medication Sig loratadine (CLARITIN ORAL) Take by mouth. No current facility-administered medications on file prior to visit. Social History Social History Tobacco Use Smoking status: Never Smokeless tobacco: Never Substance Use Topics Alcohol use: Yes Alcohol/week: 5.0 standard drinks of alcohol Types: 5 Standard drinks or equivalent per week Drug use: Yes Types: Marijuana Comment: occasional Review of Symptoms REVIEW OF SYSTEMS SEE HPI EXAM: BP 115/71 Pulse 83 Resp 14 Wt 81.2 kg (179 lb) BMI 23.62 kg/m General Appearance: Well appearing, alert, in no acute distress, well-hydrated, well nourished Nose/Sinuses: Positive findings: mucosa erythematous and swollen, purulent rhinorrhea Oropharynx: Lips, mucosa, and tongue normal, teeth and gums normal, oropharynx normal Neck: Supple, no adenopathy; thyroid symmetric, normal size, no bruits Lungs: Lungs clear to auscultation. No wheezing, rhonchi, rales.. Heart: RRR without murmur, gallop, or rubs. No ectopy. Health Maintenance List Depression Screening Never done Anxiety Screening Never done Influenza Vaccine(1) Never done Covid-19 Vaccine(1 - season) Never done Lipid Screening due on 11/10/2027 DTaP,Tdap,Td Vaccine(2 - Td or Tdap) due on 10/03/2032 Hepatitis C Screening Completed HIV Screening Completed HPV Vaccine Aged Out Hepatitis B Vaccine Discontinued ASSESSMENT/PLAN: 1. Current moderate episode of major depressive disorder without prior episode (HCC) - ICD9: 296.22, ICD10: F32.1 (primary diagnosis) - BUPROPION XL 150 MG TAB 2. Screening for depression - ICD9: V79.0, ICD10: Z13.31 - DEPRESSION SCREENING 3. Encounter for screening examination for other mental health and behavioral disorders - ICD9: V79.8, ICD10: Z13.39 - ANXIETY SCREENING 4. Bacterial sinusitis - ICD9: 473.9, 041.9, ICD10: J32.9, B96.89 - Will begin treatment with as per antibiotic as written, see orders - AMOXICILLIN 875 MG-POTASSIUM CLAVULANATE 125 MG TABLET Lashawn Rod APRN.EVENTS SOLUTIONS CONSULTANT documented in this encounter [facility] 02-22-2023 History of Presen t illness Narrative This note was created using NoteWriter. Subjective Albert Samuels is a 42 year old male. 42 year old male with no PMH presents for illness. Acute onset 8 days ago +sore throat +post nasal drainage +sinus pressure + cough, waxes and wanes. Denies fever or chills Denies SOB Or dyspnea Denies abdominal pain Denies body aches +tobacco usage Has used OTC medicines The history is provided by the patient. No building energy retrofit technician was used. Sinusitis This is a new problem. The current episode started 1 to 4 weeks ago. The problem has been gradually worsening since onset. There has been no fever. His pain is at a severity of 6/10. The pain is moderate. Associated symptoms include congestion, coughing, headaches, sinus pressure, sneezing and a sore throat. Pertinent negatives include no chills, diaphoresis, ear pain, hoarse voice, neck pain, shortness of breath or swollen glands. Treatments tried: OTC medicines. The treatment provided no relief. PAST MEDICAL HISTORY Diagnosis Date Low testosterone in male NEGATIVE MEDICAL HISTORY Seasonal allergies PAST SURGICAL HISTORY Procedure Laterality Date PAST SURGICAL HISTORY OF ORIF proximal tibia ALLERGIES Patient has no known allergies. MEDICATIONS loratadine (CLARITIN ORAL) Take by mouth. amoxicillin-clavulanate potassium (AUGMENTIN) 875-125 mg per tablet Take 1 tablet by mouth two times a day for 7 days. FAMILY HISTORY Problem Relation Age of Onset Ovarian cancer Mother Social History Tobacco Use Smoking status: Never Smokeless tobacco: Never Substance Use Topics Alcohol use: Yes Alcohol/week: 5.0 standard drinks of alcohol Types: 5 Standard drinks or equivalent per week Drug use: Yes Types: Marijuana Comment: occasional Review of Systems Constitutional: Negative for chills and diaphoresis. HENT: Positive for congestion, postnasal drip, rhinorrhea, sinus pressure, sinus pain, sneezing and sore throat. Negative for ear pain and hoarse voice. Eyes: Negative for pain, discharge, redness and itching. Respiratory: Positive for cough. Negative for shortness of breath. Cardiovascular: Negative for chest pain, palpitations and leg swelling. Gastrointestinal: Negative for abdominal pain, diarrhea, nausea and vomiting. Musculoskeletal: Negative for neck pain. Skin: Negative for color change, pallor, rash and wound. Allergic/Immunologic: Negative for environmental allergies, food allergies and immunocompromised state. Neurological: Positive for headaches. Negative for dizziness and facial asymmetry. Hematological: Negative for adenopathy. Does not bruise/bleed easily. Psychiatric/Behavioral: Negative for agitation and behavioral problems. Objective BP 124/86 Pulse 89 Temp 36.4 C (97.5 F) (Left Tympanic) Resp 16 Wt 82 kg (180 lb 12.8 oz) SpO2 96% BMI 23.85 kg/m Physical Exam Vitals and nursing note reviewed. Constitutional: General: He is not in acute distress. Appearance: Normal appearance. He is not ill-appearing, toxic-appearing or diaphoretic. HENT: Head: Normocephalic and atraumatic. Comments: +frontal sinus pressure +maxillary sinus pressure Right Ear: External ear normal. Left Ear: External ear normal. Nose: Nose normal. No congestion or rhinorrhea. Mouth/Throat: Mouth: Mucous membranes are moist. Pharynx: Oropharynx is clear. No oropharyngeal exudate or posterior oropharyngeal erythema. Eyes: General: Right eye: No discharge. Left eye: No discharge. Extraocular Movements: Extraocular movements intact. Conjunctiva/sclera: Conjunctivae normal. Pupils: Pupils are equal, round, and reactive to light. Cardiovascular: Rate and Rhythm: Normal rate and regular rhythm. Pulses: Normal pulses. Heart sounds: Normal heart sounds. No murmur heard. No friction rub. No gallop. Pulmonary: Effort: Pulmonary effort is normal. No respiratory distress. Breath sounds: Normal breath sounds. No stridor. No wheezing, rhonchi or rales. Chest: Chest wall: No tenderness. Abdominal: General: Abdomen is flat. There is no distension. Palpations: Abdomen is soft. There is no mass. Tenderness: There is no abdominal tenderness. There is no guarding or rebound. Hernia: No hernia is present. Musculoskeletal: General: No swelling, tenderness, deformity or signs of injury. Normal range of motion. Cervical back: Normal range of motion and neck supple. No rigidity or tenderness. Right lower leg: No edema. Left lower leg: No edema. Lymphadenopathy: Cervical: No cervical adenopathy. Skin: General: Skin is warm and dry. Capillary Refill: Capillary refill takes less than 2 seconds. Coloration: Skin is not jaundiced or pale. Findings: No bruising, lesion or rash. Neurological: General: No focal deficit present. Mental Status: He is alert and oriented to person, place, and time. Cranial Nerves: No cranial nerve deficit. Sensory: No sensory deficit. Motor: No weakness. Coordination: Coordination normal. Gait: Gait normal. Deep Tendon Reflexes: Reflexes normal. Psychiatric: Mood and Affect: Mood normal. Behavior: Behavior normal. Thought Content: Thought content normal. Assessment and Plan ASSESSMENT/PLAN: 1. Rhinosinusitis - ICD9: 473.9, ICD10: J32.9 X 8 days NO red flags - Will begin treatment with as per antibiotic as written, see orders - The patient should also be given OTC cough and cold meds as needed, warm salt water gargles, throat lozenges and/or OTC throat spray as needed, and nasal saline gtts and suction prn for the first 5-7 days of treatment. - Supportive care with plenty of fluids, rest, and analgesia prn. - Follow up in 3-5 days if symptoms persist or worsen. Alicia Rene APRN.SYLVAIN documented in this encounter [facility] 11-11-2022 Miscellaneous Notes Pt notified of results via [email or web address]. Karie Osuna Ma Let patient know that his labs were all normal. If he looks on mychart, he will see his LDL as flagged high, however with someone who is otherwise healthy, goal is to stay under 130. Thanks. Arielle Hirsch PA-C documented in this encounter [facility] 10-03-2022 Instructions Lashawn Rod APRN.CNP - 10/03/2022 6:26 PM EDT Complete labwork Follow up in 6 months documented in this encounter [facility] 10-03-2022 History of Presen t illness Narrative Chief Complaint Patient presents with: [facility] HPI Albert Samuels is a 42 year old male who presents here today for Above Complaints.. Patient presents to [facility]. Patient reports he is seeing functional medicine online for low testosterone as many of his symptoms including low sex drive, low motivation, depression and fatigue are related. Total testosterone 155 per labs done at outside lab. Past medical history, appointments, medications, allergies reviewed. Previous Medical History PAST MEDICAL HISTORY Diagnosis Date NEGATIVE MEDICAL HISTORY Previous Surgical History PAST SURGICAL HISTORY Procedure Laterality Date PAST SURGICAL HISTORY OF ORIF proximal tibia Family History No family history on file. Patient Allergies ALLERGIES No Known Allergies Current Medications Current Outpatient Medications on File Prior to Visit Medication Sig loratadine (CLARITIN ORAL) Take by mouth. No current facility-administered medications on file prior to visit. Social History Social History Tobacco Use Smoking status: Never Smokeless tobacco: Never Substance Use Topics Drug use: Never Review of Symptoms REVIEW OF SYSTEMS GENERAL: No weight loss, malaise or fevers HEENT: Negative for frequent or significant headaches, No changes in hearing or vision, no nose bleeds or other nasal problems NECK: Negative for lumps, goiter, pain and significant neck swelling RESPIRATORY: Negative for cough, hemoptysis, wheezing, COPD, dyspnea or shortness of breath CARDIOVASCULAR: Negative for chest pain, leg swelling, hypertension, CHF or palpitations GI: No nausea, vomiting, or diarrhea : No history of dysuria, frequency or incontinence MUSCULOSKELETAL: joint pain or swelling SKIN: Negative for lesions, rash, and itching PSYCH: Positive for depression: possibly related to low testosterone HEMATOLOGY/LYMPHOLOGY: Negative for prolonged bleeding, bruising easily or swollen nodes ENDOCRINE: Negative for cold or heat intolerance, polyuria, polydipsia and goiter NEURO: No history of headaches, syncope, paralysis, seizures or tremors EXAM: BP 124/76 Pulse 80 Resp 16 Ht 185.4 cm (6' 1) Wt 78 kg (172 lb) BMI 22.69 kg/m General Appearance: Well appearing, alert, in no acute distress, well-hydrated, well nourished.. Skin: Skin color, texture, turgor normal, no suspicious rashes or lesions. Neck: Supple, no adenopathy; thyroid symmetric, normal size, no bruits. Lungs: Lungs clear to auscultation. No wheezing, rhonchi, rales.. Heart: RRR without murmur, gallop, or rubs. No ectopy. Abdomen: Normal abdominal exam, Abdomen soft, non-tender. Bowel sounds normal. No masses, organomegaly Extremities: No deformities, edema, skin discoloration, clubbing or cyanosis. Good capillary refill. . Peripheral Pulses: Normal. Neurologic: Gait normal. Reflexes normal and symmetric. Sensation grossly intact.. Health Maintenance List HEPATITIS B(1 of 3 - 3-dose series) Never done HEPATITIS C SCREENING Never done HIV SCREENING Never done DTAP,TDAP,TD(1 - Tdap) Never done LIPID SCREEN Never done DEPRESSION ASSESSMENT Never done COVID-19 VACCINE(1) due on 10/04/2023 INFLUENZA(1) due on 11/15/2022 HPV VACCINE Aged Out ASSESSMENT/PLAN: 1. Screening for diabetes mellitus - ICD9: V77.1, ICD10: Z13.1 (primary diagnosis) - HGB A1C 2. Screening for lipid disorders - ICD9: V77.91, ICD10: Z13.220 - LIPID PANEL, NONFASTING 3. Medication management - ICD9: V58.69, ICD10: Z79.899 - CBC + DIFF - COMP METABOLIC PANEL 4. Encounter for immunization - ICD9: V03.89, ICD10: Z23 - TDAP VACCINE, AGE 7+ YR (ADACEL, BOOSTRIX) 5. Special screening examination for viral disease - ICD9: V73.99, ICD10: Z11.59 - HEPATITIS C ANTIBODY IA WITH CONFIRMATION 6. Screening for HIV (human immunodeficiency virus) - ICD9: V73.89, ICD10: Z11.4 - HIV 1 2 COMBO(AG/AB),WITH REFLEX TO DIFFERENTIATION Lashawn Rod APRN.EVENTS SOLUTIONS CONSULTANT documented in this encounter [facility] 08-16-2022 History of Presen t illness Narrative Patient presents with: Cough: Pt reported cough, nasal congestion x2 wks. HPI: Coughing for 2 weeks. It is intermittent and not usually bad but has been keeping him up at night. Positive symptoms: Cough, Sore throat, some Sinus pressure, Nasal Congestion, Rhinorrhea, some Post nasal drainage, cough interrupts sleep, seasonal allergies Negative symptoms: Shortness of breath, Chest tightness, Chest pain, Fever, Chills, OTC: Cold Medicine, Lozenges, throat spray, claritin MEDICATIONS: Current Outpatient Medications Medication Sig loratadine (CLARITIN ORAL) Take by mouth. No current facility-administered medications for this visit. ALLERGIES: ALLERGIES No Known Allergies VITALS: BP 122/78 Pulse 89 Temp 36.9 C (98.4 F) (Tympanic) Resp 18 Wt 80.8 kg (178 lb 3.2 oz) SpO2 97% PHYSICAL EXAM: GEN: Pleasant, in no acute distress. HEENT: PERRL, EOMI, conjunctiva with mild injection Ears: canals clear. TMs without erythema, bulge, or effusion Sinuses: non-tender frontal sinus, non-tender maxillary sinuses Throat: moist mucous membranes, mild erythema, no exudate Neck: supple, no thyromegaly, no lymphadenopathy HEART: regular rate and rhythm, no murmurs LUNGS: clear to auscultation, no wheezes or crackles, no increased WOB ASSESSMENT/PLAN: 1. Subacute cough - ICD9: 786.2, ICD10: R05.2 Combination of seasonal allergies and possible viral URI. Add benadryl at night. - BENZONATATE 100 MG CAPSULE Follow up for CXR if not improving in the next 2 weeks or worsens. Requesting to establish with a PCP - routed to PSS at checkout. Cooper Rivera MD documented in this encounter [facility] Evaluation note Diagnosis Subacute cough- Primary Cough [facility] [place] [facility] Diagnosis Screening for diabetes mellitus- Primary Screening for lipid disorders Medication management Encounter for long-term (current) use of other medications Encounter for immunization Need for other specified prophylactic vaccination against single bacterial disease Special screening examination for viral disease Special screening examination for unspecified viral disease Screening for HIV (human immunodeficiency virus) Special screening examination for other specified viral diseases [facility] [place] [facility] Diagnosis Rhinosinusitis- Primary Unspecified sinusitis (chronic) [facility] [place] [facility] Diagnosis Current moderate episode of major depressive disorder without prior episode (HCC)- Primary Screening for depression Encounter for screening examination for other mental health and behavioral disorders Bacterial sinusitis Unspecified sinusitis (chronic) [facility] [place] [facility] Diagnosis Current moderate episode of major depressive disorder without prior episode (HCC)- Primary Difficulty sleeping Sleep disturbance, unspecified [facility] [place] [facility] Diagnosis Current moderate episode of major depressive disorder without prior episode (HCC)- Primary Screening for diabetes mellitus Screening for lipid disorders Medication management Encounter for long-term (current) use of other medications [facility] [place] [facility] Diagnosis Bacterial sinusitis- Primary Unspecified sinusitis (chronic) Eczema, unspecified type documented in this encounter [facility] Summary Purpose Family History No Family History Records FoundNo Family History Records Found Advance Directives No Advanced Directives Records FoundNo Advanced Directives Records Found Additional Source Comments (unrecognized sect ion and content) No Status Records FoundNo Status Records Found INFORMATION SOURCE (unrecogn ized section and content) DATE CREATED AUTHOR 09/10/2017 [facility] DATE CREATED AUTHOR AUTHOR'S DIANA ATTILA 07/25/2024 [facility] Source Comments (unrecognize d section and content) In the event this informatio n is protected by the Federal Confidentiality of Alcohol and Drug Abuse Patient Records regulations: The Federal rules restrict any use of the information to criminally investigate or prosecute any alcohol or drug abuse patient.[facility] the event this information is protected by the Federal Confidentiality of Alcohol and Drug Abuse Patient Records regulations: The Federal rules restrict any use of the information to criminally investigate or prosecute any alcohol or drug abuse patient.[facility] the event this information is protected by the Federal Confidentiality of Alcohol and Drug Abuse Patient Records regulations: The Federal rules restrict any use of the information to criminally investigate or prosecute any alcohol or drug abuse patient.[facility] the event this information is protected by the Federal Confidentiality of Alcohol and Drug Abuse Patient Records regulations: The Federal rules restrict any use of the information to criminally investigate or prosecute any alcohol or drug abuse patient.[facility] the event this information is protected by the Federal Confidentiality of Alcohol and Drug Abuse Patient Records regulations: The Federal rules restrict any use of the information to criminally investigate or prosecute any alcohol or drug abuse patient.[facility] the event this information is protected by the Federal Confidentiality of Alcohol and Drug Abuse Patient Records regulations: The Federal rules restrict any use of the information to criminally investigate or prosecute any alcohol or drug abuse patient.[facility] the event this information is protected by the Federal Confidentiality of Alcohol and Drug Abuse Patient Records regulations: The Federal rules restrict any use of the information to criminally investigate or prosecute any alcohol or drug abuse patient.[facility] the event this information is protected by the Federal Confidentiality of Alcohol and Drug Abuse Patient Records regulations: The Federal rules restrict any use of the information to criminally investigate or prosecute any alcohol or drug abuse patient.[facility] Reason for Visit (unrecogniz ed section and content) Reason Comments Cough Pt reported cough, n ezequiel congestion x2 wks. Reason Comments Establish Care Reason Comments Results Reason Comments Sinusitis X 8 days Reason Comments Depression Reason Comments Follow Up Reason Comments Sinus Problem Cough Care Teams (unrecognized sec tion and content) Manager Interventional Relationship Specialty Start Date End Date Lashawn Rod APRN.EVENTS SOLUTIONS CONSULTANT [address] [place] [phone] PCP - General Family Medicine 10/03/22 Manager Interventional Relationship Specialty Start Date End Date Lashawn Rod APRN.EVENTS SOLUTIONS CONSULTANT [address] [place] [phone] PCP - General Family Medicine 10/03/22 Manager Interventional Relationship Specialty Start Date End Date Lashawn Rod APRN.EVENTS SOLUTIONS CONSULTANT [address] [place] [id number] PCP - General Family Medicine 10/03/22 Manager Interventional Relationship Specialty Start Date End Date Lashawn Rod APRN.SYLVAIN [address] [place] [phone] PCP - General Family Medicine 10/03/22 Manager Interventional Relationship Specialty Start Date End Date Lashawn Rod APRN.EVENTS SOLUTIONS CONSULTANT [address] [place] [address] [id number] PCP - General Family Medicine 10/03/22 Manager Interventional Relationship Specialty Start Date End Date Lashawn Rod APRN.EVENTS SOLUTIONS CONSULTANT [address] [place] [address] [phone] PCP - General Family Medicine 10/03/22 Manager Interventional Relationship Specialty Start Date End Date Lashawn Rod APRN.EVENTS SOLUTIONS CONSULTANT [address] [place] [phone] PCP - General Family Medicine 10/03/22 FOR RECORDS PERTAINING TO PATIENTS WHO ARE OR HAVE BEEN ENROLLED IN A CHEMICAL DEPENDENCY/SUBSTANCEABUSE PROGRAM, SOME INFORMATION MAY BE OMITTED. This clinical summary was aggregated from multiple sources. Caution should be exercised in using it in the provision of clinical care. This summary normalizes information from multiple sources, and as a consequence, information in this document may materially change the coding, format and clinical context of patient data. In addition, data may be omitted in some cases. CLINICAL DECISIONS SHOULD BE BASED ON THE PRIMARY CLINICAL RECORDS. [facility]. provides no warranty or guarantee of the accuracy or completeness of information in this document.
[2024-09-04] MEDS: Cephalexin 250 MG Capsule 500 MG PO (19:17)
[2024-09-04 19:28] VITALS: BP 142/101; PULSE 94; RESP 16; TEMP 36.7; O2SAT 98
--- NOTE | 2024-09-04 23:39 | EDS_ITS ---
HPI History of Present Illness Chief Complaint: Laceration Informant: patient Narrative Narrative: 44-year-old male presenting to the emergency room with left index finger laceration. Patient was using a wood splitter when his finger which was gloved contacted the blade. He notes significant bleeding at the scene and applied dressing. Tetanus is up-to-date. He states he is having problems bending the finger. Tetanus Immunization: <5 years [facility] Medical History Laceration Home Medications ?Medication ?Instructions ?Recorded ?Last Taken ?Type cephalexin 500 mg capsule 500 mg PO Q6 #28 CAPSULES Unknown Rx oxycodone-acetaminophen 5 mg-325 1 tab PO Q6H PRN PRN Pain 3 days 09/04/24 Unknown Rx mg tablet #12 TABLETS Allergy/AdvReac Type Severity Reaction Status Date / Time No Known Allergies Allergy Verified 12/06/13 18:45 Social History Smoking Status: Unknown if ever smoked ROS ROS ED Constitutional Constitutional ED: Denies chills or weight loss Eyes Eyes: Denies change in vision or diplopia ENT ENT ED: Denies ear pain, rhinorrhea or sore throat Cardiovascular Cardiovascular: Denies chest pain, orthopnea, palpitations or racing heartbeat Respiratory/Chest Respiratory/Chest: Denies cough, dyspnea or orthopnea Gastrointestinal Gastrointestinal: Denies abdominal pain, diarrhea, nausea or vomiting Genitourinary Genitourinary ED: Denies dysuria, hematuria or urinary frequency Musculoskeletal Musculoskeletal: Reports other Details: See history of present illness ; Denies arthralgias or myalgias Integumentary Denies abscess or rash Neurologic Neurologic: Denies headache(s) or weakness Psychiatric Psychiatric: Denies anxiety, depression, suicidal ideation or suicidal thoughts Endocrine Endocrinology: Denies polydipsia, polyphagia or polyuria Allergic/Immunologic Allergic/Immunologic ED: Denies mouth swelling, tongue swelling or urticaria EXAM Physical Exam Const Vital Signs: 09/04/24 17:55 09/04/24 19:28 Temperature 97.3 F L 98.1 F Temperature Source Oral Pulse Rate 112 H 94 Respiratory Rate 16 16 Blood Pressure 153/106 H 142/101 H Blood Pressure Mean 121 114 Pulse Ox 98 98 Oxygen Delivery Method Room Air Positive well nourished and well developed General Appearance ED: well developed HEENT Reports normocephalic, head/scalp atraumatic and moist mucous membranes Eyes PERRL and EOMs intact bilaterally Neck no lymphadenopathy, supple and no JVD Resp normal respiratory effort and clear to auscultation bilaterally Cardio regular rate, regular rhythm and no murmurs GI normal to inspection, nondistended, normoactive bowel sounds and non-tender Palpation: soft Back/Spine no CVA tenderness and normal ROM Extremity Extremity Narrative: Sensation and capillary refill are normal over the distal end of the left index finger. Left index finger demonstrates a L-shaped 4.5 centimeter laceration across the dorsal lateral aspect of the middle phalanx. Using a tourniquet to stop the bleeding I am able to visualize a complete extensor tendon laceration identifying both ends. I also identify a laceration/fracture through the middle phalanx on the dorsal surface. General Extremety ED: Negative for edema General Extremity: Negative for edema Neuro oriented x3 and CN's II-XII intact bilaterally Sensorium / Orientation: alert Motor Exam: strength 5/5 throughout Psych mental status grossly normal Mood & Affect: Negative for depressed or tearful Skin no rashes or lesions noted and no wounds MDM MDM MDM Narrative Medical decision making narrative: Differential diagnosis includes but not limited to fracture tendon injury neurovascular injury laceration foreign body My independent interpretation of the plain films is a fracture over the proximal end of the middle phalanx. Patient underwent digital block and local lidocaine infiltration to provide adequate anesthesia. The wound was washed with approximately 300 cc of sterile saline. Wound was closed using 3-0 Ethilon simple interrupted sutures. Good homeostasis was achieved. He was placed in AlumaFoam splint in extension. He was given a dose of Keflex. I advised the patient that he needs to follow-up with hand surgery. I will write for additional days of Keflex and pain medication. Patient is comfortable with this plan History & Record Review Discussion w/independent historian: Patient Additional record(s) reviewed:: Prior ED visit Radiography Diagnostic Testing: Clinical Impression(s) from Imaging Studies Finger X-Ray 09/04/24 19:00 IMPRESSION: Acute fracture of the 2nd middle phalanx with intra-articular extension. Reading Location: [facility] Discharge Plan Triage Chief Complaint: Laceration ED Provider: Raffi Gill Dx/Rx/DC Orders Clinical Impression: Open fracture of middle phalanx of index finger, Extensor tendon laceration, finger, open wound Instructions: ED Fracture, Finger, Open, ED Laceration, Hand: All Closures, ED Tendon Laceration Prescriptions: New oxycodone-acetaminophen 5-325 mg tablet 1 tab PO Q6H PRN PRN (Reason: Pain) 3 Days Qty: 12 0RF cephalexin 500 mg capsule 500 mg PO Q6 Qty: 28 0RF Primary Care Provider: Lashawn Rod Referrals: Dionicio Linares MD [Med Staff - Active Staff] - As soon as possible Lashawn Rod, [employer]ICIAN-[employer] [Primary Care Provider] - Print Language: [place] Disposition Disposition: Home, Self Care Discharge Date/Time: 09/04/24 19:32
== END 2024-09-04 19:32 | disposition home or self-care (01) ==
PROVIDERS: Emergency Provider Emergency Medicine; PCP Nurse Practitioner Family; Visit Provider Emergency Medicine
DX: S62.621B Displaced fracture of middle phalanx of left index finger, initial encounter for open fracture (principal); W31.2XXA Contact with powered woodworking and forming machines, initial encounter
CPT/HCPCS: 12002; 29130; 73140; 99283; A4216

== ENCOUNTER 2024-09-08 05:48 | Day surgery (SDC) | payer BC, OTHER, SELFPAY ==
[2024-09-08] VITALS (9 sets, daily range): BP systolic 114–138; BP diastolic 71–113; PULSE 65–94; RESP 14–16; TEMP 36.1–36.7; O2SAT 93–100; BMI 22.1
--- OUTSIDE RECORDS SUMMARY | 2024-09-08 05:50 | XMS RPT_ITS | CCD ---
Author Organization [facility] Care Team Providers Care Lieutenant Firefighter Name Role Phone Unavailable Primary Care Provider Unavailabl e Viola MAINTENANCE PLANNER.Lashawn NARAYAN Primary Care Provider Viola MAINTENANCE PLANNER.Lashawn NARAYAN Primary Care Provider LASHAWN ROD Primary Care Unavailable LASHAWN ROD Attending Unavailable LASHAWN ROD Primary Care Unavailable LASHAWN ROD Attending Unavailable LASHAWN ROD Primary Care Unavailable LASHAWN ROD Attending Unavailable VIOLA, LASHAWN Primary Care Unavailable LASHAWN ROD Attending Unavailable Dr. Raffi Gill DO Emergency Provider [phone] Viola CLINICAL SPECIALIST-CLashawn Primary Care Provider Lashawn Rod Primary Care Unavailable Lashawn Rod Referring Unavailable Dionicio Linares Attending Unavailable Lashawn Rod Primary Care Unavailable Raffi Gill Attending Unavailable Viola CLINICAL SPECIALISTLashawn Toth Referring Provider Dr. Dionicio Linares MD Attending Provider [phone] Medications Current Medications Medication Drug Class(es) Dates Sig (Normalized) Sig (Original) acetaminophen 325 mg / oxyCODONE hydrochloride 5 mg oral tablet (2 sources) Opioid Agonist Start: 09-04-2024 take 1 tablet by mouth every six hours as needed for pain Oxycodone-Acetam inophen 5-325 mg tablet Active 1 {tbl} PO EVERY 6 HOURS NEEDED as needed for Pain 12 3 September 04, 2024 amoxicillin 875 mg / clavulanate 125 mg [...] oral capsule (1 source) Non-narcotic Antitussive Start: End: take 1 capsule by mouth every eight hours as needed for cough and cough benzonatate (TESSALON PERLE) 100 mg capsule Indications: Subacute cough Take 1 capsule by mouth every 8 hours as needed for cough for up to 15 days. 30 capsule 0 08/16/2022 08/31/2022 Active Comment on above: Take 1 capsule by mo [facility] every 8 hours as needed for cough for up to 15 days. 24 hr buPROPion hydrochloride 150 mg extended release oral tablet (7 sources) Aminoketone Start: take 1 tablet by mouth once daily Bupropion Hcl 150 mg tablet extended release 24 hr Active 150 mg PO DAILY September 07, 2024 12:00am Start: 03-02-2024 End: 04-20-2024 take 1 tablet by mouth once daily [...] once daily. 60 tablet 01/20/2024 03/02/2024 Discontinued cephalexin 500 mg oral capsule (2 sources) Cephalosporin Antibacterial Start: 09-04-2024 take 1 capsule by mouth every six hours Cephalexin 500 mg capsule Active 500 mg PO EVERY 6 HOURS September 04, 2024 12:00am Loratadine (8 sources) loratadine (CLARITIN ORAL) Take by mouth. Active loratadine (CLAR [...] elsewhere; Translations: [Bacterial sinusitis] Onset: 07-19-2024 Episodic Fracture of upper limb (3 sources) Open fracture of middle phalanx of index finger; Translations: [Displaced fracture of middle phalanx of other finger, initial encounter for open fracture] Onset: 09-04-2024 09-04-2024 Episodic Immunizations and screening for infectious disease (11 sources) Patient encounter status; Translations: [Encounter for immunization] 10-03-2022 Episodic Mood disorders (4 sources) Moderate major depression, single episode; Translations: [Major depressive disorder, single episode, moderate] Onset: 04-20-2024 01-20-2024 Chronic Open wounds of extremities (2 sources) Laceration of tendon of finger; Translations: [Laceration of extensor muscle, fascia and tendon of unspecified finger at forearm level, initial encounter] 09-04-2024 Episodic Other lower respiratory disease (1 source) Cough; Translations: [Subacute cough] Episodic Other upper respiratory infections (4 sources) Chronic sinusitis, unspecified; Translations: [Unspecified sinusitis (chronic)] Onset: 07-19-2024 02-22-2023 Chronic Residual codes; unclassified (1 source) Difficulty sleeping ; Translations: [Sleep disorder, unspecified] 03-02-2024 Episodic Past or Other Problems Problem Classification Problem Date Documented Da te Episodic/Chronic Other aftercare (1 source) 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; Translations: [Medication management] Onset: [...] Results Test Name Value Interpretation Reference Range Facil ity Emergency Department Summary on 09-04-2024 Emergency Department Summary [facility] Medical Records Department [address] [place] [address] Emergency Department Summary 09/04/24 MR#: [id number] Acct: [id number] Name: ALBERT SAMUELS Rep #: [id number] : 1980 44 From: Raffi Gill DO PCP: MICHAEL SkaggsC Status:DEP ER Location: ED HPI History of Present Illness Chief Complaint: Laceration Informant: patient Narrative Narrative: 44-year-old male presenting to the emergency room with left index finger laceration. Patient was using a wood splitter when his finger which was gloved contacted the blade. He notes significant bleeding at the scene and applied dressing. Tetanus is up-to-date. He states he is having problems bending the finger. Tetanus Immunization: <[facility] Medical History Laceration Home Medications ???Medication ???Instructions ???Recorded ???Last Taken ???Type cephalexin 500 mg capsule 500 mg PO Q6 #28 CAPSULES 09/04/24 Unknown Rx oxycodone-acetaminoph en 5 mg-325 1 tab PO Q6H PRN PRN Pain 3 days 0 09/04/24 Unknown Rx mg tablet #12 TABLETS Allergy/AdvReac Type Severity Reaction Status Date / Time No Known Allergies Allergy Verified 12/06/13 18:45 Social History Smoking Status: Unknown if ever smoked ROS ROS ED Constitutional Constitutional ED: Denies chills or weight loss Eyes Eyes: Denies change in vision or diplopia ENT ENT ED: Denies ear pain, rhinorrhea or sore throat Cardiovascular Cardiovascular: Denies chest pain, orthopnea, palpitations or racing heartbeat Respiratory/Chest Respiratory/Chest: Denies cough, dyspnea or orthopnea Gastrointestinal Gastrointestinal: Denies abdominal pain, diarrhea, nausea or vomiting Genitourinary Genitourinary ED: Denies dysuria, hematuria or urinary frequency Musculoskeletal Musculoskeletal: Reports other Details: See history of present illness ; Denies arthralgias or myalgias Integumentary Denies abscess or rash Neurologic Neurologic: Denies headache(s) or weakness Psychiatric Psychiatric: Denies anxiety, depression, suicidal ideation or suicidal thoughts Endocrine Endocrinology: Denies polydipsia, polyphagia or polyuria Allergic/Immunologic Allergic/Immunologic ED: Denies mouth swelling, tongue swelling or urticaria EXAM Physical Exam Const Vital Signs: 09/04/24 17:55 06/21/25 19:28 Temperature 97.3 F L 98.1 F Temperature Source Oral Pulse Rate 112 H 94 Respiratory Rate 16 16 Blood Pressure 153/106 H 142/101 H Blood Pressure Mean 121 114 Pulse Ox 98 98 Oxygen Delivery Method Room Air Positive well nourished and well developed General Appearance ED: well developed HEENT Reports normocephalic, head/scalp atraumatic and moist mucous membranes Eyes PERRL and EOMs intact bilaterally Neck no lymphadenopathy, supple and no JVD Resp normal respiratory effort and clear to auscultation bilaterally Cardio regular rate, regular rhythm and no murmurs GI normal to inspection, nondistended, normoactive bowel sounds and non-tender Palpation: soft Back/Spine no CVA tenderness and normal ROM Extremity Extremity Narrative: Sensation and capillary refill are normal over the distal end of the left index finger. Left index finger demonstrates a L-shaped 4.5 centimeter laceration across the dorsal lateral aspect of the middle phalanx. Using a tourniquet to stop the bleeding I am able to visualize a complete extensor tendon laceration identifying both ends. I also identify a laceration/fracture through the middle phalanx on the dorsal surface. General Extremety ED: Negative for edema General Extremity: Negative for edema Neuro oriented x3 and CN's II-XII intact bilaterally Sensorium / Orientation: alert Motor Exam: strength 5/5 throughout Psych mental status grossly normal Mood Affect: Negative for depressed or tearful Skin no rashes or lesions noted and no wounds MDM MDM MDM Narrative Medical decision making narrative: Differential diagnosis includes but not limited to fracture tendon injury neurovascular injury laceration foreign body My independent interpretation of the plain films is a fracture over the proximal end of the middle phalanx. Patient underwent digital block and local lidocaine infiltration to provide adequate anesthesia. The wound was washed with approximately 300 cc of sterile saline. Wound was closed using 3-0 Ethilon simple interrupted sutures. Good homeostasis was achieved. He was placed in AlumaFoam splint in extension. He was given a dose of Keflex. I advised the patient that he needs to follow- up with hand surgery. I will write for additional days of Keflex and pain medication. Patient is comfortable with this plan (more content not included)... Normal [facility] Finger(s) Min 2 Viewson 08-16 Finger(s) Min 2 Views [facility] Imaging Services [address] [place] [address] Finger(s) Min 2 Views MR#: [id number] Acct: [id number] Name: ALBERT SAMUELS Rep #: [id number] : 1980 M 44 From: Violetta Felix nd, MD PCP: BISHNU Skaggs Status: REG ER Study: Finger(s) Min 2 Views Date of Exam: 09/04/24 Exam# [id number] Ordering Dr: Raffi Gill DO PROCEDURE: FINGER(S) MIN 2 VIEWS 09/04/2024 REASON FOR EXAM: TRAUMA TECHNIQUE: FINGER(S) MIN 2 VIEWS COMPARISON: None. FINDINGS: Bones: Acute mildly displaced and comminuted fracture of the 2nd middle phalanx (pointer finger). Joints: There is intra-articular extension of the fracture into the PIP joint. Otherwise unremarkable joint spaces. Soft tissues: Soft tissue swelling. Other: No radiopaque foreign body. RAD/Finger(s) Min 2 Views IMPRESSION: Acute fracture of the 2nd middle phalanx with intra-articular extension. Reading Location: [id number] CC: BISHNU Rod; Dr. Raffi Gill DO Manager Community: Signed Normal [facility] CNOVon 07-19-2024 CNOV Office Visit (FAMPWS ) ALBERT SAMUELS ([id number]) 1980 M Date Time Provider Department 07/19/24 3:40 PM LASHAWN ROD During your visit today, we recorded the following information about you: Pulse Blood pressure Weight 83/minute 114/73 79 kg Lashawn Rod APRN.ELA TEACHER 07/19/2024 3:49 PM Signed Chief Complaint Patient [...] bruits. LUNGS: Clear to auscultation bilaterally, no wheezes/rhonchi/rales . HEART: Regular rate and rhythm, no murmurs. [...] if symptoms persist or worsen. - Use aquaphor/eucerin/avee no to hands daily. Lashawn Rod APRN.Lashawn Leigh APRN.CNP 07/19/2024 3:48 PM Signed - Take Augmentin twice daily for 5 days as prescribed to treat your sinus infection. - Monitor your symptoms; if your sinus congestion or cough does not improve after the antibiotic course, please call our office for further evaluation. -Use aquaphor/eucerin/avee no to hands daily. Allergies As of Date: 07/19/2024 (No Known Allergies) Date Reviewed: 07/19/2024 Reviewed by: Elda Eugene MA - Fully Assessed Reason for Visit: Sinus Problem [99] Cough [28] Primary Visit Diagnosis:Bacterial sinusitis [J32.9, B96.89] Other Visit Diagnosis:Eczema, unspecified type [L30.9] Order(s):amoxicillin- clavulanate potassium (AUGMENTIN) 875-125 mg per tabletTake 1 tablet by mouth two times a day for 5 days.Disp: 10 tabletRfl: 0 Prescriptions as of 07/19/2024 - amoxicillin-clavulana te potassium (AUGMENTIN) 875-125 mg per tablet Take 1 tablet by mouth two times a day for 5 days. - buPROPion XL (WELLBUTRIN XL) 300 mg (more content not included)... Normal [facility] CNOVon 04-20-2024 CNOV Office Visit (FAMPWS ) ALBERT SAMUELS ([id number]) 1980 M Date Time Provider Department 04/20/24 4:00 PM LASHAWN ROD During your visit today, we recorded the following information about you: Pulse Respiration Blood pressure Weight 77/minute 14/minute 117/73 80.7 kg Lashawn Rod APRN.ELA TEACHER 04/20/2024 4:17 PM Signed Chief Complaint Patient [...] 300 MG 24 HR TAB Lashawn Rod APRN.ELA TEACHER Allergies As of Date: 04/20/2024 (No Known [...] BLOOD COUNT AND DIFFERENTIAL [SQCBCDIF] Order #: [id number] FUTURE COMPREHENSIVE METABOLIC PANEL [SQCMP] Order #: [id number] FUTURE HEMOGLOBIN A1C [LXGSV9L] Order #: [id number] FUTURE LIPID PANEL, NONFASTING [SQLIPNF] Order #: [id number] FUTURE THYROID STIMULATING HORMONE [SQTSH] Order #: [id number] FUTURE Prescriptions as of 04/20/2024 - buPROPion XL (WELLBUTRIN XL) 300 mg 24 hr tablet Take 1 tablet by mouth once daily. - magnesium glycinate 100 mg magnesium capsule Take 2 (more content not included)... Normal [facility] CNOVon 03-02-2024 CNOV Office Visit (FAMPWS ) ALBERT SAMUELS Ravin ([id number]) 1980 M Date Time Provider Department 03/02/24 4:20 PM [facility]HAWN [facility]OD [facility] During your visit today, we recorded the following information about you: Pulse Respiration Blood pressure Weight 73/minute 14/minute 117/71 81.2 kg Lashawn Rod APRN.ELA TEACHER 03/02/2024 4:09 PM Signed Chief Complaint Patient [...] Maintenance List Influenza Vaccine(1) Never done Covid-19 Vaccine(2023- season) Never done Depression Screening due on [...] MAGNESIUM 100 MG ( GLYCINATE) CAPSULE Lashawn Rod, MAINTENANCE PLANNER.ELA TEACHER Allergies As of Date: 03/02/2024 (No Known [...] XL (WELLBUTR (more content not included)... Normal [facility] CNOVon 01-20-2024 CNOV Office Visit (FAMPWS ) ALBERT SAMUELS ([id number]) 1980 M Date Time Provider Department 01/20/24 4:00 PM LASHAWN ROD During your visit today, we recorded the following information about you: Pulse Respiration Blood pressure Weight 83/minute 14/minute 115/71 81.2 kg Lashawn Rod APRN.ELA TEACHER 01/20/2024 4:38 PM Signed Chief Complaint Patient [...] 125 MG TABLET Lashawn Rod APRN.Lashawn Leigh APRN.SYLVAIN 01/20/2024 4:26 PM Signed [facility] - Insurance Therapy/Counseling Counts Include [address] [facility] [address] [place] [address] [facility] [address] [place] [address] [employer] [address] [address] [facility] [address] [place] [address] [facility] [address] [place] [address] [facility] [address] [address] [employer] [address] [place] [address] [address] Allergies As of Date: 01/20/2024 (No Known [...] tabletRfl: 0 DEPRESSION SCREENING [] Order #: [id number] (more content not included)... Normal [facility] Vital Signs Date Time Vital Sign Value Performing Clinician Faci ronan 09-07-2024 13:55-0400 Body height 185.[address] Raffi Gill DO Work Phone: [facility] 09-04-2024 19:28-0400 Body temperature 98.1 [degF] Dr. Raffi Gill DO Work Phone: [facility] 09-04-2024 19:28-0400 Diastolic blood pressure 101 mm[Hg] Dr. Raffi Gill DO Work Phone: [facility] 09-04-2024 19:28-0400 Heart rate 94 /min Dr. Raffi Gill DO Work Phone: [facility] 09-04-2024 19:28-0400 Respiratory rate 16 /min Dr. Raffi Gill DO Work Phone: [facility] 09-04-2024 19:28-0400 SaO2% (BldA) [Mass fraction] 98 % Dr. Raffi Gill DO Work Phone: [facility] 09-04-2024 19:28-0400 Systolic blood pressure 142 mm[Hg] Dr. Raffi Gill DO Work Phone: [facility] 09-04-2024 17:55-0400 Body height 185.[address] Raffi Gill DO Work Phone: [facility] 09-04-2024 17:55-0400 Body mass index (BMI) [Ratio] 21.6 kg/m2 Dr. Raffi Gill DO Work Phone: [facility] 09-04-2024 17:55-0400 Body weight 74.[address] Raffi Gill DO Work Phone: [facility] 07-19-2024 15:39-0400 Body mass index (BMI) [Ratio] 22.98 kg/m2 Lashawn Rod APRN.ELA TEACHER Work Phone: [facility] 07-19-2024 15:39-0400 Body weight 79 kg Lashawn Rod APRN.ELA TEACHER Work Phone: [facility] 07-19-2024 15:39-0400 Diastolic blood pressure 73 mm[Hg] Lashawn Rod APRN.ELA TEACHER Work Phone: [facility] 07-19-2024 15:39-0400 Heart rate 83 /min Lashawn Rod APRN.ELA TEACHER Work Phone: [facility] 07-19-2024 15:39-0400 Systolic blood pressure 114 mm[Hg] Lashawn Rod APRN.ELA TEACHER Work Phone: [facility] 04-20-2024 16:04-0500 Body mass index (BMI) [Ratio] 23.48 kg/m2 Lashawn Rod APRN.ELA TEACHER Work Phone: [facility] 04-20-2024 16:04-0500 Body weight 80.74 kg Lashawn Rod APRN.ELA TEACHER Work Phone: [facility] 04-20-2024 16:04-0500 Diastolic blood pressure 73 mm[Hg] Lashawn Rod APRN.ELA TEACHER Work Phone: [facility] 04-20-2024 16:04-0500 Heart rate 77 /min Lashawn Efrainoble MAINTENANCE PLANNER.ELA TEACHER Work Phone: [facility] 04-20-2024 16:04-0500 Respiratory rate 14 /min Lashawn Viola MAINTENANCE PLANNER.ELA TEACHER Work Phone: [facility] 04-20-2024 16:04-0500 Systolic blood pressure 117 mm[Hg] Lashawn Efrainoble MAINTENANCE PLANNER.ELA TEACHER Work Phone: [facility] 03-02-2024 15:58-0500 Body mass index (BMI) [Ratio] 23.62 kg/m2 Lashawn Efrainoble MAINTENANCE PLANNER.ELA TEACHER Work Phone: [facility] 03-02-2024 15:58-0500 Body weight 81.19 kg Lashawn Viola MAINTENANCE PLANNER.ELA TEACHER Work Phone: [facility] 03-02-2024 15:58-0500 Diastolic blood pressure 71 mm[Hg] Lashawn Efrainoble MAINTENANCE PLANNER.ELA TEACHER Work Phone: [facility] 03-02-2024 15:58-0500 Heart rate 73 /min Lashawn Efrainoble MAINTENANCE PLANNER.ELA TEACHER Work Phone: [facility] 03-02-2024 15:58-0500 Respiratory rate 14 /min Lashawn Efrainoble MAINTENANCE PLANNER.ELA TEACHER Work Phone: [facility] 03-02-2024 15:58-0500 Systolic blood pressure 117 mm[Hg] Lashawn Efrainoble MAINTENANCE PLANNER.ELA TEACHER Work Phone: [facility] 01-20-2024 16:10-0500 Body mass index (BMI) [Ratio] 23.62 kg/m2 Lashawngenia Rod MAINTENANCE PLANNER.ELA TEACHER Work Phone: [facility] 01-20-2024 16:10-0500 Body weight 81.19 kg Lashawn Viola MAINTENANCE PLANNER.ELA TEACHER Work Phone: [facility] 01-20-2024 16:10-0500 Diastolic blood pressure 71 mm[Hg] Lashawn Efrainoble MAINTENANCE PLANNER.ELA TEACHER Work Phone: [facility] 01-20-2024 16:10-0500 Heart rate 83 /min Lashawngenia Rod MAINTENANCE PLANNER.ELA TEACHER Work Phone: [facility] 01-20-2024 16:10-0500 Respiratory rate 14 /min Lashawn Rod MAINTENANCE PLANNER.ELA TEACHER Work Phone: [facility] 01-20-2024 16:10-0500 Systolic blood pressure 115 mm[Hg] Lashawn Rod MAINTENANCE PLANNER.ELA TEACHER Work Phone: [facility] 02-22-2023 12:04-0500 Body temperature 97.5 [degF] Alicia Rene MAINTENANCE PLANNER.ELA TEACHER Work Phone: [facility] 02-22-2023 12:04-0500 Body weight 82.01 kg Alicia Rene MAINTENANCE PLANNER.ELA TEACHER Work Phone: [facility] 02-22-2023 12:04-0500 Diastolic blood pressure 86 mm[Hg] Alicia Rene MAINTENANCE PLANNER.ELA TEACHER Work Phone: [facility] 02-22-2023 12:04-0500 Heart rate 89 /min Alicia Rene MAINTENANCE PLANNER.ELA TEACHER Work Phone: [facility] 02-22-2023 12:04-0500 Respiratory rate 16 /min Alicia Rene MAINTENANCE PLANNER.ELA TEACHER Work Phone: [facility] 02-22-2023 12:04-0500 SaO2% (BldA) [Mass fraction] 96 % Alicia Rene MAINTENANCE PLANNER.ELA TEACHER Work Phone: [facility] 02-22-2023 12:04-0500 Systolic blood pressure 124 mm[Hg] Alicia Rene MAINTENANCE PLANNER.ELA TEACHER Work Phone: [facility] 10-03-2022 18:03-0400 Body height 185.4 cm Lashawn Rod MAINTENANCE PLANNER.ELA TEACHER Work Phone: [facility] 10-03-2022 18:03-0400 Body weight 78.02 kg Lashawn Rod MAINTENANCE PLANNER.ELA TEACHER Work Phone: [facility] 10-03-2022 18:03-0400 Diastolic blood pressure 76 mm[Hg] Lashawn Rod MAINTENANCE PLANNER.ELA TEACHER Work Phone: [facility] 10-03-2022 18:03-0400 Heart rate 80 /min Lashawn Rod MAINTENANCE PLANNER.ELA TEACHER Work Phone: [facility] 10-03-2022 18:03-0400 Respiratory rate 16 /min Lashawn Rod MAINTENANCE PLANNER.ELA TEACHER Work Phone: [facility] 10-03-2022 18:03-0400 Systolic blood pressure 124 mm[Hg] Lashawn Rod MAINTENANCE PLANNER.ELA TEACHER Work Phone: [facility] 08-16-2022 18:50-0400 Body temperature 98.4 [degF] Cooper Rivera MD Work Phone: [facility] 08-16-2022 18:50-0400 Body weight 80.83 kg Cooper Rivera MD Work Phone: [facility] 08-16-2022 18:50-0400 Diastolic blood pressure 78 mm[Hg] Cooper Rivera MD Work Phone: [facility] 08-16-2022 18:50-0400 Heart rate 89 /min Cooper Rivera MD Work Phone: [facility] 08-16-2022 18:50-0400 Respiratory rate 18 /min Cooper Rivera MD Work Phone: [facility] 08-16-2022 18:50-0400 SaO2% (BldA) [Mass fraction] 97 % Cooper Rivera MD Work Phone: [facility] 08-16-2022 18:50-0400 Systolic blood pressure 122 mm[Hg] Cooper Rivera MD Work Phone: [facility] Encounters Encounter Date Encounter Type Care Provider Facility Start: 09-07-2024 End: 09-07-2024 ambulatory Lashawn Rod [place] [place]: 09-07-2024 End: 09-07-[address] Dionicio Linares MD -[facility] Work Phone: Start: 09-04-2024 End: 09-04-2024 Emergency department patient visit Dr. Raffi Gill DO Work Phone: -Emergency Department Work Phone: Start: 07-19-2024 End: 07-19-2024 Patient encounter procedure Lashawn Rod APRN.ELA TEACHER Work Phone: [facility] Comment on above: Bacterial sinusitis (Primary Dx); Eczema, unspecified type Start: 07-19-2024 End: 07-19-2024 ambulatory LASHAWN ROD Facility:[facility] Start: 04-20-2024 End: 04-20-2024 ambulatory LASHAWN ROD Facility:[facility] Start: 04-20-2024 End: 04-20-2024 Patient encounter procedure Lashawn Rod APRN.ELA TEACHER [facility] Comment on above: Current moderate epi sode of major depressive disorder without prior episode (HCC) (Primary Dx); Screening for diabetes mellitus; Screening for lipid disorders; Medication management Start: 03-02-2024 End: 03-02-2024 Patient encounter procedure Lashawn Rod APRN.ELA TEACHER Work Phone: [facility] Comment on above: Current moderate epi sode of major depressive disorder without prior episode (HCC) (Primary Dx); Difficulty sleeping Start: 03-02-2024 End: 03-02-2024 ambulatory LASHAWN ROD Facility:[facility] Start: 01-20-2024 End: 01-20-2024 ambulatory LASHAWN ROD Facility:[facility] Start: 01-20-2024 End: 01-20-2024 Patient encounter procedure Lashawn Rod APRN.ELA TEACHER Work Phone: [facility] Comment on above: Current moderate epi sode of major depressive disorder without prior episode (HCC) (Primary Dx); Screening for depression; Encounter for screening examination for other mental health and behavioral disorders; Bacterial sinusitis Start: 02-22-2023 End: 02-22-2023 Patient encounter procedure Alicia Rene APRN.ELA TEACHER Work Phone: [facility] Comment on above: Rhinosinusitis (Prim finn Dx) Start: 11-11-2022 Telephone encounter Arielle tyler PA-C Work Phone: [facility] Comment on above: Results Start: 10-03-2022 End: 10-03-2022 Patient encounter procedure Lashawn Rod APRN.CNP Work Phone: [facility] Comment on above: Screening for diabet es mellitus (Primary Dx); Screening for lipid disorders; Medication management; Encounter for immunization; Special screening examination for viral disease; Screening for HIV (human immunodeficiency virus) Start: 08-16-2022 End: 08-16-2022 Patient encounter procedure Cooper Rivera MD Work Phone: [facility] Comment on above: Subacute cough (Prim finn Dx) Procedures Date Procedure Procedure Detail Performing Clinician Start: 09-04-2024 Plain X-ray of finger D audrey Gill DO Work Phone: Start: 01-20-2024 Adult depression screening assessment Lashawn Rod APRN.CNP Work Phone: Start: 11-09-2022 Lipid 1996 panel - S bacilio or Plasma Alicia Rene APRN.CNP Work Phone: Plan of Treatment Date Care Activity Detail Author Start: 10-03-2032 Urine microalbumin profile [facility] Start: 11-10-2027 Lipid 1996 panel - Serum or Plasma Lipid Screening [facility] Start: 11-10-2027 Lipid panel Lipid Screening [facility] Start: 11-10-2027 LIPID SCREEN LIPID SCREEN [facility] Start: 01-19-2025 Anxiety Screening Anxiety Screening [facility] Start: 01-19-2025 Depression Screening Depression Scre ening [facility] Start: 11-15-2024 Influenza vaccination Influenz a Vaccine (Season Ended) [facility] Start: 10-19-2024 End: 01-18-2025 CBC W Auto Differential panel - Blood COMPLETE BLOOD COUNT AND DIFFERENTIAL Lab Routine Medication management Expected: 10/19/2024, Expires: 01/18/2025 [facility] Work Phone: Comment on above: Expected: 10/19/2024 , Expires: 01/18/2025 Start: 10-19-2024 End: 01-18-2025 Comprehensive metabolic 2000 panel - Serum or Plasma COMPREHENSIVE METABOLIC PANEL Lab Routine Screening for diabetes mellitus Expected: 10/19/2024, Expires: 01/18/2025 [facility] Comment on above: Expected: 10/19/2024 , Expires: 01/18/2025 Start: 10-19-2024 End: 01-18-2025 Hemoglobin A1c in Blood HEMOGLOBIN A1C Lab Routine Screening for diabetes mellitus Expected: 10/19/2024, Expires: 01/18/2025 [facility] Comment on above: Expected: 10/19/2024 , Expires: 01/18/2025 Start: 10-19-2024 End: 01-18-2025 LIPID PANEL, NONFASTING LIPID PANEL, NONFASTING Lab Routine Screening for lipid disorders Expected: 10/19/2024, Expires: 01/18/2025 [facility] Comment on above: Expected: 10/19/2024 , Expires: 01/18/2025 Start: 10-19-2024 End: 01-18-2025 Thyrotropin [Units/volume] in Serum or Plasma THYROID STIMULATING HORMONE Lab Routine Medication management Expected: 10/19/2024, Expires: 01/18/2025 [facility] Comment on above: Expected: 10/19/2024 , Expires: 01/18/2025 Start: 10-18-2024 End: 10-18-2024 Patient encounter procedure 10/18/2024 4:00 PM EDT Office Visit [address] [place] [address] Lashawn Rod, WILIAN.ELA TEACHER [address] [place] [address] 6 month follow up Family Sarah Harding Comment on above: 6 month follow up Start: 09-04-2024 [facility] Start: 04-01-2024 End: 04-01-2024 Patient encounter procedure 04/01/2024 4:00 PM EST Office [address], [place] [address] Lashawn Rod, MAINTENANCE PLANNER.ELA TEACHER [address] [place], [place] [id number] 4 week follow up [facility] Mehdi Comment on above: 4 week follow up Start: 03-02-2024 End: 03-02-2024 Patient encounter procedure 03/02/2024 4:20 PM EST Office Visit [facility] [address] [place], [place] [id number] Lashawn Rod, WILIAN.ELA TEACHER [address] [place], [place] [id number] medication follow up [facility] Comment on above: medication follow up Start: 11-16-2023 Covid-19 Vaccine ( season) Covid-19 Vaccine () [facility] Start: 11-16-2023 Influenza vaccination Influenza Vacc ine (#1) [facility] Start: 10-04-2023 COVID-19 VACCINE (#1) COVID-19 VACCI NE (#1) [facility] Comment on above: Postponed from 12/24 (Declined at this time) Start: 11-15-2022 Influenza vaccination [facility] Start: 10-03-2022 End: 12-03-2022 CBC W Auto Differential panel - Blood CBC + DIFF Lab Routine Medication management Expected: 10/03/2022, Expires: 12/03/2022 [facility] Work Phone: Comment on above: Expected: 10/03/2022 , Expires: 12/03/2022 Start: 10-03-2022 End: 12-03-2022 Comprehensive metabolic 2000 panel - Serum or Plasma COMP METABOLIC PANEL Lab Routine Medication management Expected: 10/03/2022, Expires: 12/03/2022 [facility] Work Phone: Comment on above: Expected: 10/03/2022 , Expires: 12/03/2022 Start: 10-03-2022 End: 12-03-2022 Hemoglobin A1c in Blood HGB A1C Lab Routine Screening for diabetes mellitus Expected: 10/03/2022, Expires: 12/03/2022 [facility] Work Phone: Comment on above: Expected: 10/03/2022 , Expires: 12/03/2022 Start: 10-03-2022 End: 12-03-2022 Hepatitis C virus Ab [Presence] in Serum HEPATITIS C ANTIBODY IA WITH CONFIRMATION Lab Routine Special screening examination for viral disease Expected: 10/03/2022, Expires: 12/03/2022 [facility] Work Phone: Comment on above: Expected: 10/03/2022 , Expires: 12/03/2022 Start: 10-03-2022 End: 12-03-2022 HIV 1+2 Ab [Presence] in Serum or Plasma by Immunoassay HIV 1 2 COMBO(AG/AB),WITH REFLEX TO DIFFERENTIATION Lab Routine Screening for HIV (human immunodeficiency virus) Expected: 10/03/2022, Expires: 12/03/2022 [facility] Work Phone: Comment on above: Expected: 10/03/2022 , Expires: 12/03/2022 Start: 10-03-2022 End: 12-03-2022 LIPID PANEL, NONFASTING LIPID PANEL, NONFASTING Lab Routine Screening for lipid disorders Expected: 10/03/2022, Expires: 12/03/2022 [facility] Work Phone: Comment on above: Expected: 10/03/2022 , Expires: 12/03/2022 Start: 03-17-2022 DEPRESSION ASSESSMENT DEPRESSION ASS ESSMENT [facility] Start: 06-25-2015 LIPID SCREEN LIPID SCREEN [facility] Start: 06-25-1999 Urine microalbumin profile DTAP,TDAP,TD (1 - Tdap) [facility] Start: 1998 HEPATITIS C SCREENING HEPATITIS C SC REENING [facility] Start: 1998 HIV SCREENING HIV SCREENING [facility] Start: 1980 COVID-19 VACCINE (#1) COVID-19 VACCI NE (#1) [facility] Start: 1980 HEPATITIS B (1 of 3 - 3-dose series) HEPATITIS B (1 of 3 - 3-dose series) [facility] Patient Education ED Fracture, F ariel, Open ED Laceration, Hand: All Closures ED Tendon Laceration [facility] Work Phone: Patient referral [facility] Work Phone: [facility] Immunizations Immunization Date Immunization Notes Care Provider Morenita quesada 10-03-2022 tetanus toxoid, redu carla diphtheria toxoid, and acellular pertussis vaccine, adsorbed Lashawn Rod MAINTENANCE PLANNER.ELA TEACHER Work Phone: [facility] Payers Date Payer Category Payer Self-pay 2015 [employer] [facility] BLUE ACCE SS PPO [id number] 2015 Unknown RONAK MALONEYE PPO [id number] 2015-Present [phone] [id number] 2015 Unknown [id number] Unknown [facility] [id number] Unknown [id number] Unknown [id number] Social History Date Type Detail Facility Start: 03-12-2014 End: 09-07-2024 Tobacco smoking status NHIS Never smoked tobacco [facility] Start: 03-12-2014 Tobacco use and exposure Smokeless tobacco non-user [facility] Start: 08-16-2022 Alcohol intake Not Asked Mckenzie [facility] Start: 1980 Sex Assigned At Not on file [facility] Start: 10-03-2022 End: 02-22-2023 Alcohol intake Current drinker of alcohol (finding) [facility] Start: 10-03-2022 End: 04-20-2024 Alcohol intake [facility] Work Phone: Start: 10-03-2022 End: 04-20-2024 Tobacco use panel [facility] Work Phone: Adult Depression Screening Assessment 2 [facility] Work Phone: Start: 09-04-2024 Tobacco smoking stat [facility] Tobacco smoking consumption unknown (finding) [facility] Start: 1980 Sex Assigned At Male [facility] Functional Status Date Assessment Result Facility 03-12-2014 Are you deaf, or do you have serious difficulty hearing No 03/12/2014 11:24 AM Mylene Morrissey LPN No [facility] 03-12-2014 Are you blind, or do you have serious difficulty seeing, even when wearing glasses No 03/12/2014 11:24 AM Mylene Morrissey LPN No [facility] 03-12-2014 Do you have serious difficulty walking or climbing stairs No 03/12/2014 11:24 AM Mylene Morrissey LPN No [facility] 03-12-2014 Do you have difficul ty dressing or bathing No 03/12/2014 11:24 AM Mylene Morrissey LPN No [facility] 03-12-2014 Because of a physica l, mental, or emotional condition, do you have difficulty doing errands alone such as visiting a physician's office or shopping No 03/12/2014 11:24 AM Mylene Morrissey LPN No [facility] Mental Status Date Assessment Result Facility 03-12-2014 Because of a physica l, mental, or emotional condition, do you have serious difficulty concentrating, remembering, or making decisions No 03/12/2014 11:24 AM Mylene Morrissey LPN No [facility] Clinical Notes 08-16-2022 to 09-04-2024 Patient InstructionsLashawn Rod APRN.ELA TEACHER - 07/19/2024 3:39 PM EDTLashawn Rod APRN.ELA TEACHER - 04/20/2024 4:06 PM Lashawn Hammer APRN.ELA TEACHER - 03/02/2024 4:00 PM ESTPatient Instructions Note Date & Type Note Facility 09-04-2024 Radiology Diagnostic study note [facility] Imaging Services [address] [place], [place] [address] Finger(s) Min 2 Views MR#: [id number] Acct: [id number] Name: ALBERT SAMUELS Rep #: [id number] : 1980 M [id number] From: Libertad Sorto MD PCP: BISHNU Skaggs Status: REG ER Study:Finger(s) Min 2 Views Date of Exam: 09/04/24 Exam# [id number] Ordering Dr: Jamaal Gill DO PROCEDURE: FINGER(S) MIN 2 VIEWS 09/04/2024 REASON FOR EXAM: TRAUMA TECHNIQUE: FINGER(S) MIN 2 VIEWS COMPARISON: None. FINDINGS: Bones: Acute mildly displaced and comminuted fracture of the 2nd middle phalanx (pointer finger). Joints: There is intra-articular extension of the fracture into the PIP joint. Otherwise unremarkable joint spaces. Soft tissues: Soft tissue swelling. Other: No radiopaque foreign body. RAD/Finger(s) Min 2 Views IMPRESSION: Acute fracture of the 2nd middle phalanx with intra-articular extension. Reading Location: [id number] CC: CLINICAL SPECIALISTNavneet Rod; Dr. Raffi Gill DO ~ Manager Community: Signed [facility] 07-19-2024 Lashawn De Paz APRN.ELA TEACHER - 07/19/2024 3:48 PM EDT - Take Augmentin twice daily for 5 days as prescribed to treat your sinus infection. - Monitor your symptoms; if your sinus congestion or cough does not improve after the antibiotic course, please call our office for further evaluation. -Use aquaphor/eucerin/aveeno to hands daily. documented in this encounter [facility] 07-19-2024 Note HNO ID: [id number] Author: LASHAWN ROD APRN.ELA TEACHER Service: ? Author Type: Nurse Practitioner Type: [...] Use aquaphor/eucerin/aveeno to hands daily. Lashawn Rod APRN.[facility] 07-19-2024 History of Presen t illness [...] Use aquaphor/eucerin/aveeno to hands daily. Lashawn Rod APRN.ELA TEACHER documented in this encounter [facility] 04-20-2024 Note HNO ID: [id number] Author: LASHAWN ROD APRN.ELA TEACHER Service: ? Author Type: Nurse Practitioner Type: [...] Influenza Vaccine(1) Never done Covid-19 Vaccine( - ) Never done Depression Screening due on 01/19/2025 [...] 300 MG 24 HR TAB Lashawn Rod APRN.ELA TEACHER [facility] 04-20-2024 History of Presen t illness [...] List Influenza Vaccine(1) Never done Covid-19 Vaccine( season) Never done Depression Screening due on [...] 300 MG 24 HR TAB Lashawn Rod APRN.ELA TEACHER documented in this encounter [facility] 03-02-2024 Note HNO ID: [id number] Author: LASHAWN ROD APRN.SYLVAIN Service: ? Author [...] 100 MG ( GLYCINATE) CAPSULE Lashawn Rod APRN.[facility] 03-02-2024 History of Presen t illness [...] List Influenza Vaccine(1) Never done Covid-19 Vaccine( season) Never done Depression Screening due on [...] 100 MG ( GLYCINATE) CAPSULE Lashawn Rod APRN.ELA TEACHER documented in this encounter [facility] 01-20-2024 Instructions Lashawn Rod APRN.ELA TEACHER - 01/20/2024 4:26 PM EST [facility] - Insurance Therapy/Counseling Counts Include [address] [facility] [address] [place] [address] [facility] [address] [place] [address] [employer] [address] [address] [facility] [address] [place] [address] [facility] [address] [place] [address] [facility] [address] [address] [employer] [address] [place] [address] [address] documented in this encounter [facility] 01-20-2024 Note HNO ID: [id number] Author: LASHAWN ROD APRN.SYLVAIN Service: ? Author [...] MG-POTASSIUM CLAVULANATE 125 MG TABLET Lashawn Rod, MAINTENANCE PLANNER.[facility] 01-20-2024 History of Presen t illness [...] Influenza Vaccine(1) Never done Covid-19 Vaccine(1 - ) Never done Lipid Screening due on 11/10/2027 [...] MG-POTASSIUM CLAVULANATE 125 MG TABLET Lashawn Rod APRN.ELA TEACHER documented in this encounter [facility] 02-22-2023 History of Presen t illness Narrative [...] history is provided by the patient. No sign language interpreter was used. Sinusitis This is a new [...] if symptoms persist or worsen. Alicia Rene APRN.ELA TEACHER documented in this encounter [facility] 11-11-2022 Miscellaneous Notes Pt notified of results via [employer]. Karie Osuna Ma Let patient know that his labs were all normal. If he looks on mychart, he will see his LDL as flagged high, however with someone who is otherwise healthy, goal is to stay under 130. Thanks. Arielle Hirsch PA-C documented in this encounter [facility] 10-03-2022 Instructions Lashawn Rod APRN.SYLVAIN - 10/03/2022 6:26 PM EDT Complete labwork Follow up in 6 months documented in this encounter [facility] 10-03-2022 History of Presen t illness Narrative Chief Complaint Patient presents with: [facility] HPI Albert Samuels is a 42 year old male who presents here today for Above Complaints.. [facility]. Patient reports he is seeing functional medicine [...] 2 COMBO(AG/AB),WITH REFLEX TO DIFFERENTIATION Lashawn Rod APRN.ELA TEACHER documented in this encounter [facility] 08-16-2022 History of Presen t illness Narrative [...] Cooper Rivera MD documented in this encounter [facility] Evaluation note Diagnosis Subacute cough- Primary Cough [facility] Diagnosis Screening for diabetes mellitus- Primary [...] specified viral diseases [facility] Diagnosis Rhinosinusitis- Primary Unspecified sinusitis (chronic) [facility] Diagnosis Current moderate episode of major depressive disorder without prior episode (HCC)- Primary Screening for depression Encounter for screening examination for other mental health and behavioral disorders Bacterial sinusitis Unspecified sinusitis (chronic) documented in this encounter [facility] note* Diagnosis Current moderate episode of major depressive disorder without prior episode (HCC)- Primary Difficulty sleeping Sleep disturbance, unspecified documented in this encounter [facility] note* Diagnosis Current moderate episode of major depressive disorder without prior episode (HCC)- Primary Screening for diabetes mellitus Screening for lipid disorders Medication management Encounter for long-term (current) use of other medications documented in this encounter [facility] note* Diagnosis Bacterial sinusitis- Primary Unspecified sinusitis (chronic) Eczema, unspecified type documented in this encounter [facility] noteNo assessment information availableWOhio [facility] Surgical [facility] Work Phone: Reason for referral (narrative)No reason for referral information availableWOhio Valley Surgical Hospital Work Phone: Summary Purpose Family History Relationship Condition Age at Onset Recorded Date/T mindy Not Specified Acute arthritis Unknown Advance Directives Advance Directive Response Recorded Date/ Time Do you have a Healthcare Power of Cloth Designer? No September 04, 2024 6:51pm Chief Complaint and Reason for Visit Chief Complaint Admit Date LAC September 04, 2024 5:55 pm Chief Complaint Admit Date LAC September 04, 2024 5:55 pm ED FOLLOW UP September 07, 2024 1:34 pm Additional Source Comments Source Comments (unrecognize d section and content) In the event this informatio n is protected by the Federal Confidentiality of Alcohol and Drug Abuse Patient Records regulations: The Federal rules restrict any use of the information to criminally investigate or prosecute any alcohol or drug abuse patient.[facility] the event this information is protected by the Federal Confidentiality of Alcohol and Drug Abuse Patient Records regulations: The Federal rules restrict any use of the information to criminally investigate or prosecute any alcohol or drug abuse patient.[facility] CenterIn the event this information is protected by the Federal Confidentiality of Alcohol and Drug Abuse Patient Records regulations: The Federal rules restrict any use of the information to criminally investigate or prosecute any alcohol or drug abuse patient.[facility] CenterIn the event this information is protected by the Federal Confidentiality of Alcohol and Drug Abuse Patient Records regulations: The Federal rules restrict any use of the information to criminally investigate or prosecute any alcohol or drug abuse patient.[facility] CenterIn the event this information is protected by the Federal Confidentiality of Alcohol and Drug Abuse Patient Records regulations: The Federal rules restrict any use of the information to criminally investigate or prosecute any alcohol or drug abuse patient.[facility] CenterIn the event this information is protected by the Federal Confidentiality of Alcohol and Drug Abuse Patient Records regulations: The Federal rules restrict any use of the information to criminally investigate or prosecute any alcohol or drug abuse patient.[facility] CenterIn the event this information is protected by the Federal Confidentiality of Alcohol and Drug Abuse Patient Records regulations: The Federal rules restrict any use of the information to criminally investigate or prosecute any alcohol or drug abuse patient.[facility] CenterIn the event this information is protected by the Federal Confidentiality of Alcohol and Drug Abuse Patient Records regulations: The Federal rules restrict any use of the information to criminally investigate or prosecute any alcohol or drug abuse patient.[facility] Reason for Visit (unrecogniz ed section and content) Reason Comments Cough Pt reported cough, n ezequiel congestion x2 wks. Reason Comments Establish Care Reason Comments Results Reason Comments Sinusitis X 8 days Reason Comments Depression Reason Comments Follow Up Reason Comments Sinus Problem Cough Care Teams (unrecognized sec tion and content) Lieutenant Firefighter Relationship Specialty Start Date End Date Lashawn Rod APRN.CNP [address] [place] [address] PCP - General Family Medicine 10/03/22 Lieutenant Firefighter Relationship Specialty Start Date End Date Lashawn Rod APRN.SYLVAIN [address] [place] [phone] PCP - General Family Medicine 10/03/22 Lieutenant Firefighter Relationship Specialty Start Date End Date Lashawn Rod MAINTENANCE PLANNER.ELA TEACHER [address] [place] [address] [phone] PCP - General Family Medicine 10/03/22 Lieutenant Firefighter Relationship Specialty Start Date End Date Lashawn Rod MAINTENANCE PLANNER.ELA TEACHER [address] [place] [phone] PCP - General Family Medicine 10/03/22 Lieutenant Firefighter Relationship Specialty Start Date End Date Lashawn Rod MAINTENANCE PLANNER.ELA TEACHER [address] [place] [phone] PCP - General Family Medicine 10/03/22 Lieutenant Firefighter Relationship Specialty Start Date End Date Lashawn Rod, MAINTENANCE PLANNER.ELA TEACHER [address] [place] [address] [phone] PCP - General Family Medicine 10/03/22 Lieutenant Firefighter Relationship Specialty Start Date End Date Lashawn Rod MAINTENANCE PLANNER.ELA TEACHER [address] [place] [address] [phone] PCP - General Family Medicine 10/03/22 Team Status: Active Member Role Status Dates BISHNU Skaggs Primary Care Provider Active Team Status: Inactive Member Role Status Dates Dr. Raffi Gill DO Emergency Provider Active Start: September 04, 2024 End: September 04, 2024 BISHNU Skaggs Primary Care Provider Active Start: September 04, 2024 End: September 04, 2024 Team Status: Inactive Member Role Status Dates BISHNU Skaggs Primary Care Provider Active Start: September 07, 2024 End: September 07, 2024 BISHNU Skaggs Referring Provider Active Start: September 07, 2024 End: September 07, 2024 Dr. Dionicio Linares MD Attending Provider Active Start: September 07, 2024 End: September 07, 2024 (unrecognized sect ion and content) No Status Records FoundNo Status Records Found INFORMATION SOURCE (unrecogn ized section and content) DATE CREATED AUTHOR 07/25/2024 [facility] DATE CREATED AUTHOR AUTHOR'S ORGANIZ ATION 09/06/2024 [facility] Goals (unrecognized section and content) Goals may be documented in a n alternate sectionGoals may be documented in an alternate section FOR RECORDS PERTAINING TO PATIENTS WHO ARE [...] BE BASED ON THE PRIMARY CLINICAL RECORDS. [facility] [employer] [facility]. provides no warranty or guarantee of the accuracy or completeness of information in this document.
--- NOTE | 2024-09-08 06:30 | RAD_ITS ---
PROCEDURE: FINGER(S) MIN 2 VIEWS 09/08/2024 REASON FOR EXAM: ORIF LT INDEX FINGER TECHNIQUE: FINGER(S) MIN 2 VIEWS Intraoperative 9 spots were obtained. Radiation time: 10.33 seconds. Radiation dose: 3.75 mGy. COMPARISON: Radiographs on 09/04/2024. FINDINGS: Open reduction and internal fixation of fracture lines in the base of the middle phalanx of the 2nd finger in good alignment. Unremarkable metallic screws. No dislocation is noted. RAD/Finger(s) Min 2 Views IMPRESSION: Open reduction and internal fixation of fracture lines in the base of the middl e phalanx of the 2nd finger in good alignment. Unremarkable metallic screws. Reading Location: [facility]
[2024-09-08] MEDS: Lactated Ringers 1,000 ML 15 ML IV (06:38)
--- NOTE | 2024-09-08 06:58 | PRE.ANES_ITS ---
ASA Classification* ASA Classification ASA Classification: 2 Assessment & Plan Anesthesia* Anesthesia Assessment Anesthesia Assessment: Discussed sedation and/or anesthesia options, risks, benefits, and alternatives with patient/parents/legal guardian/POA. Questions invited. The patient/parents/legal guardian/POA seems to understand and agrees to proceed with anesthesia plan. Reviewed the physical assessment, medical history, allergy history and patient home medications list prior to surgery/procedure/anesthetic and documented any changes. Performed airway and anesthesia risk assessments. Anesthesia Type Anesthesia Type: MAC History Source History Obtained from:: Patient and Chart Anesthesia Focused Assessment* Temperature: 98.0 F Pulse Rate: 74 Blood Pressure: 125/89 Respiratory Rate: 16 Pulse Ox: 98 Oxygen Delivery Method: Room Air Airway Assessment Mouth opens: >3 cm Mallampati Score: II Teeth Condition: Intact and Missing (missing a few) Neck Range of motion (ROM): Full ROM Labs Anesthesia Preop lab: CBC CHEMISTRY COAG Pre-Assessment Diagnosis/Proposed Procedure Planned Operative Procedure(s): ORIF, FINGER Anesthesia History Anesthesia History - bilingual instructor: Anesthesia History - bilingual instructor Hx Hospitalization No 09/07/24 11:24 Any Problems With Anesthesia No 09/07/24 11:24 Cholinesterase deficiency No 09/07/24 11:24 You/Your Family Experience No 09/07/24 11:24 fever (hyperthermia) with Relationship Recent Exposure to Contagious No 09/08/24 06:33 Disease Does patient have nerve No 09/07/24 11:24 stimulator Patient instructed to have device shut off --Does patient have Pacemaker No 09/08/24 06:35 or ICD? When Was Last Pacemaker Check QUESTION #4 FULL TEXT: You/Your Family Experience fever (hyperthermia) with Anesthesia Last Oral Intake Last Oral intake: Last Oral Intake NPO since 00:00 09/08/24 06:35 Meds taken in AM with sips of Yes 09/08/24 06:35 water? Meds patient instructed to bupropion 09/08/24 06:35 take am of surgery cephalexin percocet PONV PONV - bilingual instructor: PONV - bilingual instructor Female No 09/07/24 11:24 HX of Motion Sickness No 09/07/24 11:24 HX of N/V After Surgery No 09/07/24 11:24 Non-Smoker Yes 09/07/24 11:24 Duration of Surgery greater Yes 09/07/24 11:24 than 60 minutes Number of Risk Factors 2 09/07/24 11:24 PONV Score Moderate Risk 09/07/24 11:24 Height & Weight Height & Weight: Anesthesia: Height & Weight Height 6 ft 1 in 09/08/24 06:35 Weight: 76 kg 09/08/24 06:35 Body Mass Index (BMI) 22.1 09/08/24 06:35 Respiratory Assessment Respiratory Assessment - bilingual instructor: Respiratory Tract Infection Hx - bilingual instructor Hx Respiratory Tract Infection No 09/07/24 11:24 STOP Sleep Apnea STOP Sleep Apnea - bilingual instructor: STOP Sleep Apnea - bilingual instructor Hx Hypertension No 09/07/24 11:24 Hx Sleep Apnea No 09/07/24 11:24 CPAP BIPAP Do you snore loudly (louder Yes 09/07/24 11:24 than talking or can be heard Do you often feel tired/ No 09/07/24 11:24 fatigued/ sleepy during daytime? Has anyone observed you stop Yes 09/07/24 11:24 breathing during sleep? STOP Results Positive 09/07/24 11:24 QUESTION #5 FULL TEXT : Do you snore loudly (louder than talking or can be heard through closed doors)? 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 Specify any problems Hx of Preganancy in last 3 N/A 09/07/24 11:24 Months Nurse Filling Out Transfusion [email or web address] 09/07/24 11:24 & Questions: Date: 09/07/24 09/07/24 11:24 Time: 11:28 09/07/24 11:24 Patient unable to answer at this time (ie. confused, unrespo /Reproduction History /Reproductive History - bilingual instructor: /Reproductive Hx- bilingual instructor Hx Now Gestational Age (in weeks): EDC: Hx Hx Para Hx Section SAB Active Medications Active Medications: Current Medications Generic Name Dose Route Start Last Admin Trade Name Freq PRN Reason Stop Dose Admin Cefazolin Sodium 2 gm/ Sodium 110 mls @ 200 mls/hr 09/08/24 07:30 Chloride IV 09/08/24 08:02 INTRAOP ONE Lactated Ringer's 1,000 mls @ 15 mls/hr 09/08/24 06:00 09/08/24 06:38 IV 15 mls/hr .Q48H SUSAN Administration PFSH Medical History Depression Marijuana use Alcohol use Injury of head and neck Gastric reflux Laceration Home Medications ?Medication ?Instructions ?Recorded ?Last Taken ?Type cephalexin 500 mg capsule 500 mg PO Q6 #28 CAPSULES 09/08/24 Rx oxycodone-acetaminophen 5 mg-325 1 tab PO Q6H PRN PRN Pain 3 days 09/04/24 09/08/24 Rx mg tablet #12 TABLETS bupropion HCl 150 mg 24 hr tablet, 150 mg PO DAILY 09/08/24 History extended release Allergy/AdvReac Type Severity Reaction Status Date / Time No Known Allergies Allergy Verified 09/07/24 13:56 Family History Other Acute arthritis Social History Smoking Status: Never smoker alcohol intake: current substance use type: marijuana additional social history: pt denies vaping, uses marijuana and uses edibles-last friday pt denies blood clots pt uses aspirin and ibuprofen as needed Review of Systems (Anesthesia) ROS Narrative System reviewed and no additional complaints, except as documented. Physical Exam Const alert, oriented x3 and average body habitus Resp normal respiratory effort, normal air movement and clear to auscultation bilaterally Cardio regular rate, regular rhythm, no murmurs and diaphoretic
--- NOTE | 2024-09-08 07:03 | PCM.HP.STD ---
HPI - General HPI Narrative The patient is a 44-year-old male presenting with a laceration and fracture of the left index finger. The injury occurred while using a log splitter, resulting in a cut to the middle phalanx and damage to the extensor tendon. The patient reports being unable to fully extend the finger, with a sensation of instability and a slight mallet finger deformity. The patient has no prior history of surgery on the left hand and denies any previous significant injuries to the left hand. 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 The patient denies smoking and reports no history of bleeding or clotting disorders. He has a history of eczema, which occasionally affects his hands, but it is not currently exacerbated by the injury. The patient reports that they do not have any personal or family history of bleeding or clotting disorders. He is not a smoker Tetanus is up to date Current Encounter (DATE OF SURGERY H&P UPDATE): I saw and examined the patient this morning in pre-operative holding. We discussed risks and benefits of today's surgery and they would like to proceed. NO CHANGE in health history since last seen and evaluated. Ready to proceed with surgery. FORMERLY [facility] Medical History Depression Marijuana use Alcohol use Injury of head and neck Gastric reflux Laceration Home Medications ?Medication ?Instructions ?Recorded ?Last Taken ?Type cephalexin 500 mg capsule 500 mg PO Q6 #28 CAPSULES 09/04/24 09/08/24 Rx oxycodone-acetaminophen 5 mg-325 1 tab PO Q6H PRN PRN Pain 3 days 09/04/24 09/08/24 Rx mg tablet #12 TABLETS bupropion HCl 150 mg 24 hr tablet, 150 mg PO DAILY 09/07/24 09/08/24 History extended release Allergy/AdvReac Type Severity Reaction Status Date / Time No Known Allergies Allergy Verified 09/07/24 13:56 Family History Other Acute arthritis Social History Smoking Status: Never smoker alcohol intake: current substance use type: marijuana additional social history: pt denies vaping, uses marijuana and uses edibles-last friday pt denies blood clots pt uses aspirin and ibuprofen as needed Vital Signs Vital Signs Vital Signs: 09/08/24 06:33 09/08/24 06:35 09/08/24 07:00 Temperature 98.0 F 98.0 F Temperature Source Temporal Pulse Rate 74 74 Respiratory Rate 16 16 Respiratory Pattern Normal Blood Pressure 125/89 H 125/89 H Blood Pressure Mean 101 Blood Pressure Source Monitor Blood Pressure Position Sitting Blood Pressure Location Right Arm Pulse Ox 98 98 Oxygen Delivery Method Room Air Room Air Weight Weight: 167 lb 8.821 oz Body Mass Index (BMI) 22.1 Physical Exam Narrative Exam from today: Left index finger bruised. No signs of infection.Limited ROM. Marked today for surgery EXAM FROM CLINIC 07 SEPTEMBER 2024: L Upper Extremity Inspection: Laceration on the dorsal/radial aspect of the left index finger. Nylon sutures in place, laceration repair c/d/i Palpation: Bone feels unstable. No collateral ligament instability on the index finger on my exam today. Motor: Unable to fully bend or extend the left index finger due to stitches and injury. Slight mallet finger noted. Able to bend DIP and PIP joints (no flexor tendon injuries on the index) Sensory: Intact to light touch on the radial and ulnar borders, but sensation feels slightly dull on the back of the finger. Vascular: Finger tips are warm and well perfused with greater than 2 second capillary refill. Assessment & Plan Assessment/Plan (1) Extensor tendon laceration, finger, open wound: (2) Open fracture of middle phalanx of index finger: PLAN: Plan The patient is a 44-year-old male with a history of eczema presenting with a laceration and fracture of the left index finger due to a log splitter accident. The injury involves a cut to the middle phalanx and damage to the extensor tendon, resulting in a slight mallet finger deformity. The fracture is located at the joint socket, and the patient reports a sensation of instability in the finger. The patient denies any previous significant injuries or surgeries to the left hand and is otherwise healthy, with no history of smoking or bleeding disorders. The plan includes surgical intervention to repair the extensor tendon and stabilize the fracture, with options for K-wire fixation or screw placement discussed. I talked to the patient extensively about the risks of surgery, including bleeding, infection/osteomyelitis, hardware failure, hardware infection, MRI incomparability of hardware,, damage to surrounding structures, (nerves), poor scaring, surgical site dehiscence and wound formation, need for wound care, need for repeat operations (for hardware of to treat a nonunion/malunion), failure to obtain the desired result, DVT/PE, and the risks of anesthesia. The benefits and alternatives of this surgery were also discussed. All of their questions were answered, and they agreed to proceed with surgery (repair of extensor tendon, CRPP v ORIF of the middle phalanx fracture, left index finger). MAC/local (discussed with patient) 1. Laceration Of The Left Index Finger With Extensor Tendon Injury The plan is to surgically repair the extensor tendon of the left index finger, which was injured by a log splitter. The procedure will involve removing sutures, assessing the tendon, and performing necessary repairs to restore function. 2. Fracture Of The Middle Phalanx Of The Left Index Finger The fracture of the middle phalanx will be addressed surgically, with options including K-wire fixation or screw placement for stabilization. The choice of fixation will depend on achieving optimal alignment and stability to facilitate healing. 3. Mallet Finger Of The Left Index Finger The mallet finger deformity will be corrected during the surgical procedure to repair the extensor tendon and stabilize the fracture. Post-operative care will include immobilization in a splint for three weeks, followed by rehabilitation to restore function. 4. Eczema The patient's eczema, which occasionally affects the hands, will be monitored, especially during the post-operative period when a cast or splint may cause irritation. No specific treatment for eczema was discussed during this visit. INTERVAL H&P PLAN, DATE OF SURGERY: We will proceed with surgery today. I reiterated the above risks, including infection and including comminution/worsening of fracture with hardware, as well as nonunions/failure to obtain desired result/stiff finger. Patient elected to proceed.
[2024-09-08] MEDS: Cefazolin 2 GM in 0.9% Normal Saline (100mL Bag) 100 ML IV (07:30)
[2024-09-08] MEDS: Lidocaine 1% (30 ml sdv) 30 ML Vial (08:00)
[2024-09-08] MEDS: Bupivacaine 0.25% 30 ML Vial (08:00)
--- NOTE | 2024-09-08 09:54 | PCM.POST.ANE ---
Anesthesia: Postop Eval I Current Vital Signs Temperature: 98 F Pulse Rate: 84 Blood Pressure: 114/71 Respiratory Rate: 14 Pulse Ox: 97 Oxygen Delivery Method: Room Air Assessment Airway patent: Yes Spontaneous unlabored respirations: Yes Mental status: Awake and Calm nausea: No Vomiting: No Anesthesia Complication: No Fluid Hydration Crystalloid volume administer (ml): 800 Total IV fluid infused: 800 Progress Note Anesthesia document: Postop Eval 1 completed: Yes
--- NOTE | 2024-09-08 10:17 | PCM.OPRPT ---
Operative Report (Standard) Operative Information Date of Procedure: 09/08/24 Pre-Operative Diagnosis: 1) Left index finger extensor tendon laceration (Zone 2) and middle phalanx fracture (intraarticular, PIP joint) Post-Operative Diagnosis: Same Surgery/Procedure Performed: 1) Open reduction internal fixation left index finger middle phalanx (71046) 2) Extensor tendon repair, left index finger (CPT: 45068) infertility medical assistant: Yes Motor Setter: Pedro Luis Castro Tasks completed by executive staff assistant: Retracting Type of Anesthesia: MAC/Supplemental (10 cc of 50/50 mixture of 1% lidocaine and 0.25% Marcaine) RN Documented Start/Stop Times: Operation Date: 09/08/24 07:30 Case Time Into Pre-Op 09/08/24 05:55 Out of Pre-Op 09/08/24 07:25 Anesthesia Start 09/08/24 07:28 Into Room 09/08/24 07:28 Procedure Start 09/08/24 08:02 Procedure End 09/08/24 09:28 Anesthesia End 09/08/24 09:34 Out of Room 09/08/24 09:34 Into Recovery 09/08/24 09:37 Into Phase II Recovery 09/08/24 10:05 Out of Recovery 09/08/24 10:05 Procedure Start Time: 08:02 Procedure Stop Time: 09:28 Select all DRAINS/GRAFTS/IMPLANTS that apply: Implanted device (2 A threx scres ) Implanted device details: (1) 14 mm m2.5 micro compression FT screw, [id number] (2) 1.6 mm cortical screw (headless compression) 12 mm , [id number] Estimated Blood Loss: minimal Specimen collected: No Description of surgery: Indications: Patient is a 44-year-old male who sustained an open fracture to the left index finger on Friday, 04 September 2024, as well as a transection of his extensor tendon from an injury with a production wood craftsman. Talked him about the risks benefits and alternatives to open reduction internal fixation and repair of the extensor tendon. He elected to proceed. Procedure details: Patient was correctly identified in preoperative holding and marked. He was taken back to the operating room he was administered sedation and the above-noted digital block. He was prepped and draped in sterile fashion. All proper timeouts were performed. Sutures were removed. Esmarch was used and the tourniquet was inflated to 250 mmHg on the arm. The wound was irrigated with copious amounts normal saline and Irrisept. The fracture was then reduced with the help of the mini C arm and a fracture reduction forceps. 0.035 K wires were driven to stabilize the fracture. Terrell was checked (no rotation or angulation, normal digital cascade). Then a headless compression screw (see details above) was drilled across the fracture line from the distal ulnar aspect of the middle phalanx to the ulnar base of the middle phalanx. A second smaller derotational screw was then placed in a similar fashion but more volar (see details above). Terrell was again checked and there was no rotation or angulation (normal digital cascade). We then turned our attention to extensor mechanism repair. The mechanism had been transected just proximal to the terminal slip. The lateral bands of the extensor mechanism were then primarily repaired with 2 separate [id number] 3-0 FiberWire sutures. The wound was again irrigated with Irresept and copious amounts of normal saline. We let the tourniquet down and hemostasis obtained with bipolar electrocautery. 4-0 nylon interrupted sutures were then used to close the wound edges. Xeroform and a plaster splint (radial gutter with fingers in extension) was applied. Patient tolerated the procedure well. He was awakened taken the PACU in stable condition. Postoperative plan: Plan for wound check in 1 week in clinic. Then plan for immobilization in a cast for 2 more weeks (for the extensor tendon), followed by transition to an Orthoplast splint and extensor tendon protocol (okay for range of motion at that point). Surgical Findings: Fracture was reducible Central slip was intact in [place] position Complications Complications: No
--- NOTE | 2024-09-08 14:47 | PCM.POSTANE2 ---
Anesthesia Postop Eval I Sum Postop Eval Completion status Anesthesia document: Postop Eval 1 completed: Yes Anesthesia Postop Eval I Summary Anesthesia Postop Eval I Summary: Anesthesia Postop Eval I: Assessment Summary Airway patent Yes 09/08/24 09:55 [email or web address] Spontaneous unlabored Yes 09/08/24 09:55 [email or web address] respirations Mental status Awake,Calm 09/08/24 09:55 [email or web address] nausea No 09/08/24 09:55 [email or web address] Vomiting No 09/08/24 09:55 [email or web address] Anesthesia Postop Eval I: Fluid Summary Crystalloid volume administer 800 09/08/24 09:55 [email or web address] (ml) Colloids volume administered ( ml) Blood Product volume administered (ml) Total IV fluid infused 800 09/08/24 09:55 [email or web address] Anesthesia Postop Eval I: Summary Notes Anesthesia Complication No 09/08/24 09:55 [email or web address] Anesthesia Complication Comment: Post-operative progress note Anesthesia: Postop Eval II Evaluation Mental status: Awake Pain Level: 0 nausea: No Vomiting: No Complications Anesthesia Complication: No
== END 2024-09-08 10:37 | disposition home or self-care (01) ==
LOC: SDC 05:48 → AC 05:49
PROVIDERS: PCP Nurse Practitioner Family; Referring Provider Surgery Plastic and Reconstructive Surgery; Visit Provider Surgery Plastic and Reconstructive Surgery
PROC: (CPT 26746; principal; 2024-09-08 07:15)
DX: S62.621B Displaced fracture of middle phalanx of left index finger, initial encounter for open fracture (principal); S66.323A Laceration of extensor muscle, fascia and tendon of left middle finger at wrist and hand level, initial encounter; M20.012 Mallet finger of left finger(s); W31.2XXA Contact with powered woodworking and forming machines, initial encounter; F32.A Depression, unspecified; L30.9 Dermatitis, unspecified; Z79.899 Other long term (current) drug therapy
CPT/HCPCS: 26746; 26418; 01830; 73140; 76000; C1713; J2405

== ENCOUNTER 2024-11-23 14:00 | Outpatient (RCR) | payer BC, SELFPAY ==
--- NOTE | 2024-09-15 07:44 | HP.OTEVAL_ITS ---
Patient's Visit Information Visit Information Visit Information: DIANN SOLANO is a 44 year old M, referred to Occupational Therapy by Dr. Dionicio Linares MD, with a diagnosis of left IF extensor tendon laceration. Date of Evaluation: 09/14/24 Occupational Therapist: Leora Garcia, HEBERR/Maryann, CHT Subjective Subjective: This 44 year old male was seen for OT eval with dx of a left IF extensor tendon laceration. Pt states while he was splitting firewood for a friend to have a bonfire he suffered the laceration. States he was in a hurry. pt arrives 6 days s/p from ORIF of IF and extensor tendon repair. Dr. Linares sent him for custom orthosis as pt was not wearing surgical splint. Pt can not start formal Occupational therapy for anther two weeks. ROM ROM Comments: pt demo with newly healing structures - all digits except for affected left IF demo ROM WNL Left IF will be tested later date as to not compromise repair. Strength Strength Comments: will test later date Edema Other: pt demo with slight swelling of left IF Sensation Sensation Comments: pt states some tingling/numb around incision Quick DASH-Disab of Arm,Shoulder& Hand Quick DASH Score: 60.0000 Goals Goal:Daily scar massage when approriate: Yes Goal:ROM equal to unaffected hand: Yes Goal:Bench Assembly Inspector/Pinch strength at least 75% of unaffected hand: Yes Goal:No pain with affected hand use: Yes Goal:PIP Circumferences equal to unaffected hand: Yes Goal:Full use of affected hand in daily activities including work: Yes Other Goal: orthosis use: pt will demo understanding of orthosis use by end of 1st session. pt will demo understanding to return to clinic for orthosis adj. Rehabilitation General Assessment: pt arrives 6 days s/p from a left IF extensor tendon repair with phalanx ORIF. pt demo need for custom orthosis as he was not compliant on keep soft surgical splint on. Today therapist ed. pt on need of keeping finger from moving as to not compromise repair. Pt demo understanding - therapist ed. pt to wear at all times until Dr. messer pt for Therapy. Therapy at that time will initiate 1-2x week for 8-12 weeks. pt demo understanding- therapist david. custom orthosis placing IF and MF in safe position. pt ed. to wear at all times - return to clinic for adj. as needed to increase compliance and comfort. pt demo understanding and agree to POC. Rehabilitation Potential: Good Anticipated Interventions Anticipated Interventions: A/AAROM/PROM, Strengthening, Scar Care, Triggerpoint Release, Desensitization, Modalities, Orthoses, Joint Protection/Energy Conservation, Ergonomic Education, Fine Motor Coord/Ottoniel, Education re Diagnosis, Caregiver Training and Home Program Visit Plan Frequency: 1-2x /Week Duration: 3 Months TEXT: Thank you for the opportunity to evaluate your patient. For Medicare and Medicare HMO plans, please review the plan of care and approve it. It will need to be FAXED BACK to us at [phone] for Medicare purposes. Please let me know if there are questions or concerns regarding this plan of care. Physician Signature: Date:
== END 2024-11-23 19:00 | disposition home or self-care (01) ==
LOC: OT 14:00
PROVIDERS: PCP Nurse Practitioner Family; Referring Provider Surgery Plastic and Reconstructive Surgery; Visit Provider Surgery Plastic and Reconstructive Surgery
DX: S56.422D Laceration of extensor muscle, fascia and tendon of left index finger at forearm level, subsequent encounter (principal); S61.209D Unspecified open wound of unspecified finger without damage to nail, subsequent encounter
CPT/HCPCS: 97110; 97140; 97166; 97530